=== PATIENT | female | born 1985 | race Caucasian/White ===

== ENCOUNTER 2016-12-24 10:17 | Emergency (ER) | payer OTHER ==
[~2016-12-24] VITALS: Ht 137.2 cm; Wt 56.7 kg
[~2016-12-24 10:17] MED LIST: ATARAX PO; DEPA250T3 OR; DEPA500T OR; NICO14DI3 TD; NICO7DIS4 TD; TRAZ100T OR; ZOLO50TA OR
[2016-12-24] MEDS ORDERED: CLAR10CA3 PO (10:28)
[2016-12-24] MEDS ORDERED: PRAZ1CAP PO (10:28)
[2016-12-24] MEDS ORDERED: MIRT45TA3 PO (10:28)
[2016-12-24] MEDS ORDERED: NS 1,000 ML IV ONE (11:00)
[2016-12-24] MEDS ORDERED: diphenhydrAMINE INJ 50MG/ML VIAL (J1200) IV ONE (11:00)
[2016-12-24] MEDS ORDERED: methylPREDNISolone INJ 125 MG/2 ML VIAL (J2930) IV ONE (11:00)
[2016-12-24] MEDS ORDERED: FAMOTIDINE 20 MG TAB PO ONE (11:00)
[2016-12-24 11:12] LABS: BASO % 0.1 % (0.0-1.0); EOS # 0.1 K/mm3 (0.0-0.50); EOS % 1.2 % (0.0-3.0); LARGE UNSTAINED CELL # 0.1 K/mm3 (0.0-0.4); LARGE UNSTAINED CELL % 0.6 % (0.0-4.0); LYMPH # 1.1 K/mm3 (1.5-4.5); LYMPH % 9.2 % (24.0-44.0); MEAN CORPUSCULAR HGB CONC 34.2 g/dl (32.0-36.5); MEAN CORPUSCULAR VOLUME 93.5 fl (80.0-96.0); MONO # 0.3 K/mm3 (0.0-0.8); MONO % 2.7 % (0.0-5.0); NEUTROPHILS # 9.4 K/mm3 (1.8-7.7); NEUTROPHILS % 86.3 % (36.0-66.0); PLATELET COUNT, AUTOMATED 199 k/mm3 (150-450); WHITE BLOOD COUNT 10.9 K/mm3 (4.0-10.0)
[2016-12-24 11:28] LABS: ANION GAP 6 MEQ/L (8-16); BLOOD UREA NITROGEN 12 MG/DL (7-18); CALCIUM LEVEL 8.7 MG/DL (8.5-10.1); CARBON DIOXIDE LEVEL 26 MEQ/L (21-32); CHLORIDE LEVEL 107 MEQ/L (98-107); CREATININE FOR GFR 0.55 MG/DL (0.55-1.02); GLOMERULAR FILTRATION RATE > 60.0 (>60); GLUCOSE, FASTING 101 MG/DL (70-105); POTASSIUM SERUM 4.2 MEQ/L (3.5-5.1); SODIUM LEVEL 139 MEQ/L (136-145)
[2016-12-24 11:31] LABS: ALBUMIN 3.7 GM/DL (3.2-5.2); ALBUMIN/GLOBULIN RATIO 1.12 (1.00-1.93); BILIRUBIN,DIRECT 0.1 MG/DL (0.0-0.2); BILIRUBIN,TOTAL 0.3 MG/DL (0.2-1.0)
[2016-12-24 11:57] LABS: ERYTHROCYTE SEDIMENTATION RATE 17 mm/hr (0-20)
[2016-12-24] MEDS ORDERED: BENA25CA4 PO (12:03)
[2016-12-24] MEDS ORDERED: PEPC1TAB4 PO (12:03)
[2016-12-24] MEDS ORDERED: PRED20TA PO (12:03)
[2016-12-24 12:06] VITALS: BP 113/78
== END 2016-12-24 12:09 | disposition home or self-care (01) ==
LOC: M ED 11:12
DX: L50.0 Allergic urticaria (principal); F99 Mental disorder, not otherwise specified; F17.200 Nicotine dependence, unspecified, uncomplicated; Z91.013 Allergy to seafood; Z79.899 Other long term (current) drug therapy
CPT/HCPCS: 80048; 80076; 81001; 85025; 85652; 86140; 96374; 96375; 99282; J1200; J2930

== ENCOUNTER 2017-02-10 04:08 | Inpatient (IN) | payer OTHER ==
[~2017-02-10] VITALS: Ht 154.9 cm; Wt 66.0 kg
[~2017-02-10 04:08] MED LIST changes: +BENA25CA4 PO; +CLAR10CA3 PO; +MIRT45TA3 PO; +PEPC1TAB4 PO; +PRAZ1CAP PO; +PRED20TA PO
[2017-02-10] MEDS ORDERED: CLON0.2T PO (04:24)
[2017-02-10] MEDS ORDERED: diphenhydrAMINE INJ 50MG/ML VIAL (J1200) IV ONE (05:30)
[2017-02-10] MEDS ORDERED: NS 1,000 ML IV ONE (05:30)
[2017-02-10] MEDS ORDERED: methylPREDNISolone INJ 125 MG/2 ML VIAL (J2930) IV ONE (05:30)
[2017-02-10] MEDS ORDERED: FAMOTIDINE IV BAG 20 MG in APPROPRIATE DILUENT 1 EA IV ONE (05:30)
[2017-02-10] MEDS ORDERED: DEPA1TAB3 PO (08:02)
[2017-02-10] MEDS ORDERED: MIRT45TA PO (08:02)
[2017-02-10] MEDS ORDERED: CLON-412 PO (08:02)
[2017-02-10] MEDS ORDERED: LORA10TA2 PO (08:02)
[2017-02-10] MEDS ORDERED: OMEP20TA PO (08:02)
[2017-02-10 08:24] LABS: ALBUMIN 3.1 GM/DL (3.2-5.2); ALBUMIN/GLOBULIN RATIO 1.03 (1.00-1.93); ALKALINE PHOSPHATASE 50 U/L (45-117); ALT/SGPT 16 U/L (12-78); ANION GAP 6 MEQ/L (8-16); AST/SGOT 10 U/L (15-37); BILIRUBIN,DIRECT < 0.1 MG/DL (0.0-0.2); BILIRUBIN,TOTAL 0.4 MG/DL (0.2-1.0); BLOOD UREA NITROGEN 12 MG/DL (7-18); CARBON DIOXIDE LEVEL 27 MEQ/L (21-32); CHLORIDE LEVEL 106 MEQ/L (98-107); CREATININE FOR GFR 0.49 MG/DL (0.55-1.02); GLOMERULAR FILTRATION RATE > 60.0 (>60); GLUCOSE, FASTING 98 MG/DL (70-105); SODIUM LEVEL 139 MEQ/L (136-145); TOTAL PROTEIN 6.1 GM/DL (6.4-8.2)
[2017-02-10 08:36] LABS: BASO % 0.1 % (0.0-1.0); EOS % 0.2 % (0.0-3.0); LARGE UNSTAINED CELL # 0.1 K/mm3 (0.0-0.4); LARGE UNSTAINED CELL % 0.8 % (0.0-4.0); LYMPH % 9.3 % (24.0-44.0); MEAN CORPUSCULAR HEMOGLOBIN 32.1 pg (27.0-33.0); MEAN CORPUSCULAR HGB CONC 34.8 g/dl (32.0-36.5); MONO # 0.4 K/mm3 (0.0-0.8); MONO % 3.3 % (0.0-5.0); NEUTROPHILS # 9.6 K/mm3 (1.8-7.7); NEUTROPHILS % 86.3 % (36.0-66.0); PLATELET COUNT, AUTOMATED 140 k/mm3 (150-450); RED CELL DISTRIBUTION WIDTH 11.9 % (11.5-14.5); WHITE BLOOD COUNT 11.2 K/mm3 (4.0-10.0)
[2017-02-10] MEDS ORDERED: ONDANSETRON 4MG/2ML VIAL (J2405) IV PRN (08:45)
[2017-02-10] MEDS ORDERED: ACETAMINOPHEN TAB 650MG DOSE (2X325MG) PO PRN (08:45)
[2017-02-10] MEDS ORDERED: ALBUTEROL SULFATE 2.5 MG/0.5 ML INH NEB SOLN INH PRN (08:45)
[2017-02-10] MEDS ORDERED: FAMOTIDINE IV BAG 20 MG in APPROPRIATE DILUENT 1 EA IV SCH (09:00)
[2017-02-10] MEDS: cloNIDine 0.1 MG TAB PO SCH ×2 (09:00→21:00)
[2017-02-10 09:36] LABS: RETIC HEMOGLOBIN CONTENT CHr 33.1 PG (24-36); RETICULOCYTE ABSOLUTE ADVIA212 106 x10(9)/L (17-77)
[2017-02-10 10:04] LABS: FERRITIN 32 NG/ML (8-252); TOTAL IRON BINDING CAPACITY 337 UG/DL (250-450)
[2017-02-10] MEDS: CETIRIZINE (ZyrTEC) 10 MG TAB PO SCH (10:36)
[2017-02-10] MEDS: DIVALPROEX 500 MG TAB PO SCH (10:36)
[2017-02-10] MEDS: ENOXAPARIN 40 MG/0.4 ML SYRINGE (J1650) SC SCH (10:38)
[2017-02-10 10:58] LABS: FOLATE 22.9 NG/ML; VITAMIN B12 LEVEL 422 PG/ML
[2017-02-10 11:06] LABS: ERYTHROCYTE SEDIMENTATION RATE 10 mm/hr (0-20)
[2017-02-10] MEDS: diphenhydrAMINE INJ 50MG/ML VIAL (J1200) IV PRN ×2 (11:44→18:58)
[2017-02-10] MEDS ORDERED: methylPREDNISolone INJ 40 MG/1 ML VIAL (J2920) IV SCH (12:00)
[2017-02-10] MEDS: FAMOTIDINE IV BAG 20 MG in APPROPRIATE DILUENT 1 EA IV SCH (18:00)
[2017-02-10] MEDS: methylPREDNISolone INJ 125 MG/2 ML VIAL (J2930) IV SCH (21:00)
[2017-02-10] MEDS ORDERED: MIRTAZAPINE 15 MG TAB PO SCH (21:00)
[2017-02-10 22:00] VITALS: BP 120/63
[2017-02-11] MEDS: methylPREDNISolone INJ 125 MG/2 ML VIAL (J2930) IV SCH ×2 (03:32→11:38)
[2017-02-11] MEDS: diphenhydrAMINE INJ 50MG/ML VIAL (J1200) IV PRN ×2 (03:32→08:58)
[2017-02-11 06:00] VITALS: BP 139/66
[2017-02-11] MEDS: FAMOTIDINE IV BAG 20 MG in APPROPRIATE DILUENT 1 EA IV SCH (06:24)
[2017-02-11 06:56] LABS: MEAN CORPUSCULAR HEMOGLOBIN 32.5 pg (27.0-33.0); MEAN CORPUSCULAR HGB CONC 35.1 g/dl (32.0-36.5); MEAN CORPUSCULAR VOLUME 92.8 fl (80.0-96.0); RED CELL DISTRIBUTION WIDTH 11.8 % (11.5-14.5); WHITE BLOOD COUNT 16.1 K/mm3 (4.0-10.0)
[2017-02-11 07:06] LABS: ANION GAP 7 MEQ/L (8-16); BLOOD UREA NITROGEN 12 MG/DL (7-18); CALCIUM LEVEL 8.5 MG/DL (8.5-10.1); CARBON DIOXIDE LEVEL 27 MEQ/L (21-32); CHLORIDE LEVEL 108 MEQ/L (98-107); CREATININE FOR GFR 0.55 MG/DL (0.55-1.02); GLOMERULAR FILTRATION RATE > 60.0 (>60); GLUCOSE, FASTING 148 MG/DL (70-105); POTASSIUM SERUM 4.2 MEQ/L (3.5-5.1); SODIUM LEVEL 142 MEQ/L (136-145)
[2017-02-11 09:01] VITALS: BP 139/66
[2017-02-11] MEDS: DIVALPROEX 500 MG TAB PO SCH (09:01)
[2017-02-11] MEDS: cloNIDine 0.1 MG TAB PO SCH (09:01)
[2017-02-11] MEDS: CETIRIZINE (ZyrTEC) 10 MG TAB PO SCH (09:02)
[2017-02-11] MEDS: ENOXAPARIN 40 MG/0.4 ML SYRINGE (J1650) SC SCH (09:02)
[2017-02-11] MEDS ORDERED: DIPH25CA PO ×2 (09:18→11:47)
[2017-02-11] MEDS ORDERED: PRED10TA PO (09:18)
[2017-02-11] MEDS ORDERED: CETI10TA PO (09:18)
[2017-02-11 09:56] LABS: COMPLEMENT C3 110 MG/DL (90-180); COMPLEMENT C4 20.4 MG/DL (10-40)
[2017-02-12] MEDS ORDERED: BENA25TA9 PO (14:12)
[2017-02-12] MEDS ORDERED: CETI10TA PO (14:12)
[2017-02-12] MEDS ORDERED: PRED10TA PO (14:14)
== END 2017-02-11 12:35 | DRG 346 ==
LOC: M ED 04:47 → M ED INP 08:45 → M MS5PR 17:55
PROVIDERS: ADMIT Internal Medicine; ATTEND Internal Medicine
DX: M35.9 Systemic involvement of connective tissue, unspecified (principal); F41.9 Anxiety disorder, unspecified; F31.9 Bipolar disorder, unspecified; J30.2 Other seasonal allergic rhinitis; F90.9 Attention-deficit hyperactivity disorder, unspecified type; L23.9 Allergic contact dermatitis, unspecified cause; Z79.899 Other long term (current) drug therapy; Z87.891 Personal history of nicotine dependence

== ENCOUNTER 2017-02-12 12:33 | Emergency (ER) | payer OTHER ==
[~2017-02-12] VITALS: Ht 154.9 cm; Wt 69.4 kg
[~2017-02-12 12:33] MED LIST changes: +CETI10TA PO; +CLON-412 PO; +CLON0.2T PO; +DEPA1TAB3 PO; +DIPH25CA PO; +LORA10TA2 PO; +MIRT45TA PO; +OMEP20TA PO; +PRED10TA2 PO
[2017-02-12] MEDS ORDERED: FAMOTIDINE INJ 20MG/2ML VIAL (S0028) IVP ONE (13:30)
[2017-02-12] MEDS ORDERED: methylPREDNISolone INJ 125 MG/2 ML VIAL (J2930) IV ONE (13:30)
[2017-02-12 13:56] LABS: BASO % 0.1 % (0.0-1.0); EOS # 0.1 K/mm3 (0.0-0.50); EOS % 0.5 % (0.0-3.0); LARGE UNSTAINED CELL # 0.1 K/mm3 (0.0-0.4); LARGE UNSTAINED CELL % 0.6 % (0.0-4.0); LYMPH # 1.4 K/mm3 (1.5-4.5); LYMPH % 9.7 % (24.0-44.0); MEAN CORPUSCULAR HEMOGLOBIN 31.8 pg (27.0-33.0); MEAN CORPUSCULAR HGB CONC 34.6 g/dl (32.0-36.5); MEAN CORPUSCULAR VOLUME 91.9 fl (80.0-96.0); MONO # 0.6 K/mm3 (0.0-0.8); MONO % 4.6 % (0.0-5.0); NEUTROPHILS # 11.4 K/mm3 (1.8-7.7); NEUTROPHILS % 84.6 % (36.0-66.0); PLATELET COUNT, AUTOMATED 180 k/mm3 (150-450); RED CELL DISTRIBUTION WIDTH 12.4 % (11.5-14.5); WHITE BLOOD COUNT 13.5 K/mm3 (4.0-10.0)
[2017-02-12 14:11] LABS: CONTROL LINE HCG INT CTR LINE PRESENT
[2017-02-12] MEDS ORDERED: CETI10TA PO (14:12)
[2017-02-12] MEDS ORDERED: BENA25TA10 PO (14:12)
[2017-02-12] MEDS ORDERED: PRED10TA2 PO (14:14)
[2017-02-12 14:19] LABS: ALBUMIN 2.9 GM/DL (3.2-5.2); ALBUMIN/GLOBULIN RATIO 0.91 (1.00-1.93); ALKALINE PHOSPHATASE 44 U/L (45-117); ALT/SGPT 14 U/L (12-78); ANION GAP 7 MEQ/L (8-16); AST/SGOT 3 U/L (15-37); BILIRUBIN,DIRECT < 0.1 MG/DL (0.0-0.2); BILIRUBIN,TOTAL 0.1 MG/DL (0.2-1.0); BLOOD UREA NITROGEN 14 MG/DL (7-18); CALCIUM LEVEL 8.3 MG/DL (8.5-10.1); CARBON DIOXIDE LEVEL 27 MEQ/L (21-32); CHLORIDE LEVEL 108 MEQ/L (98-107); CREATININE FOR GFR 0.54 MG/DL (0.55-1.02); GLOMERULAR FILTRATION RATE > 60.0 (>60); GLUCOSE, FASTING 104 MG/DL (70-105); POTASSIUM SERUM 4.2 MEQ/L (3.5-5.1); SODIUM LEVEL 142 MEQ/L (136-145); TOTAL PROTEIN 6.1 GM/DL (6.4-8.2)
--- NOTE | 2017-02-12 15:37 | REP ---
CHEST, TWO VIEWS: There is no evidence of acute infiltrate. No pleural effusion is seen. The heart is normal in size. The mediastinal silhouette is unremarkable. The visualized osseous structures are intact. IMPRESSION: No acute pulmonary disease. Signed by Elvis Ledezma MD 02/12/2017 05:15 P
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
[2017-02-12 18:35] VITALS: BP 140/92
== END 2017-02-12 18:37 | disposition left against medical advice (07) ==
LOC: M ED 14:38
DX: L50.0 Allergic urticaria (principal); T78.40XA Allergy, unspecified, initial encounter; X58.XXXD Exposure to other specified factors, subsequent encounter; Y92.89 Other specified places as the place of occurrence of the external cause; Y93.9 Activity, unspecified; Y99.8 Other external cause status
CPT/HCPCS: 71020; 80048; 80076; 80164; 84703; 85025; 93041; 94760; 96374; 96375; 99285; J2930

== ENCOUNTER → 2017-03-24 | Outpatient (REF) | payer OTHER ==
[~2017-03-24] MED LIST changes: +BENA25TA10 PO
[2017-03-24 18:44] LABS: MEAN CORPUSCULAR HGB CONC 34.2 g/dl (32.0-36.5); MEAN CORPUSCULAR VOLUME 96.7 fl (80.0-96.0); RED CELL DISTRIBUTION WIDTH 12.5 % (11.5-14.5); WHITE BLOOD COUNT 7.7 K/mm3 (4.0-10.0)
[2017-03-24 18:55] LABS: ALBUMIN 3.2 GM/DL (3.2-5.2); ALBUMIN/GLOBULIN RATIO 1.03 (1.00-1.93); ALKALINE PHOSPHATASE 51 U/L (45-117); ALT/SGPT 17 U/L (12-78); ANION GAP 8 MEQ/L (8-16); AST/SGOT 10 U/L (15-37); BILIRUBIN,TOTAL 0.3 MG/DL (0.2-1.0); BLOOD UREA NITROGEN 12 MG/DL (7-18); CALCIUM LEVEL 8.5 MG/DL (8.5-10.1); CARBON DIOXIDE LEVEL 22 MEQ/L (21-32); CHLORIDE LEVEL 111 MEQ/L (98-107); CHOLESTEROL LEVEL 162 MG/DL (<200); GLOMERULAR FILTRATION RATE > 60.0 (>60); GLUCOSE, FASTING 117 MG/DL (70-105); POTASSIUM SERUM 3.9 MEQ/L (3.5-5.1); SODIUM LEVEL 141 MEQ/L (136-145); TOTAL PROTEIN 6.3 GM/DL (6.4-8.2); TRIGLYCERIDES LEVEL 158 MG/DL (<150)
== END ==
LOC: M LAB REF 16:31
PROVIDERS: ATTEND Nurse Practitioner Family
DX: L50.0 Allergic urticaria (principal); Z13.220 Encounter for screening for lipoid disorders; Z11.3 Encounter for screening for infections with a predominantly sexual mode of transmission

== ENCOUNTER → 2017-07-07 | Outpatient (REF) | payer OTHER ==
[~2017-07-07] MED LIST changes: +ADDE12.5 PO; +CYCL10TA PO; +IBUP-1022 PO; +TRAM-533 PO
[2017-07-07 19:04] LABS: FOLATE 11.4 NG/ML
== END ==
LOC: M LAB REF 17:45
PROVIDERS: ATTEND Nurse Practitioner Adult Health
DX: G60.9 Hereditary and idiopathic neuropathy, unspecified (principal)

== ENCOUNTER → 2017-08-25 | Outpatient (REF) | payer OTHER ==
[2017-08-25 14:07] LABS: RHEUMATOID FACTOR QUANT < 10.0 IU/ML (0-15.0)
[2017-08-25 14:11] LABS: VITAMIN B12 LEVEL 574 PG/ML
[2017-08-25 16:00] LABS: ERYTHROCYTE SEDIMENTATION RATE 4 mm/hr (0-20)
[2017-08-26 14:21] LABS: ANTINUCLEAR ANTIBODIES DIRECT Negative (Negative)
[2017-08-29 00:06] LABS: VITAMIN B1 LEVEL WHOLE BLOOD 141.9 nmol/L (66.5-200.0); VITAMIN B6,PYRIDOXAL PHOSPHATE 13.7 ug/L (2.0-32.8)
[2017-09-01 14:12] LABS: VITAMIN E LEVEL 6.8 mg/L (5.3-16.8)
== END ==
LOC: M LABNEURO 09:00
DX: R20.9 Unspecified disturbances of skin sensation (principal); M25.50 Pain in unspecified joint
CPT/HCPCS: 82746

== ENCOUNTER 2018-01-01 03:07 | Emergency (ER) | payer OTHER ==
[2018-01-01 03:24] LABS: HEMATOCRIT 39.6 % (36.0-47.0); HEMOGLOBIN 13.6 g/dl (12.0-15.5); MEAN CORPUSCULAR HGB CONC 34.3 g/dl (32.0-36.5); MEAN CORPUSCULAR VOLUME 93.2 fl (80.0-96.0); PLATELET COUNT, AUTOMATED 274 10^3/uL (150-450); RED BLOOD COUNT 4.25 10^6/uL (4.00-5.40); RED CELL DISTRIBUTION WIDTH 12.8 % (11.5-14.5); WHITE BLOOD COUNT 12.2 10^3/uL (4.0-10.0)
[2018-01-01 03:39] LABS: CONTROL LINE HCG INT CTR LINE PRESENT; HCG, SERUM QUALITATIVE NEGATIVE (NEGATIVE)
[2018-01-01 03:44] LABS: AMPHETAMINES LEVEL URINE POSITIVE (NEGATIVE); BARBITURATES URINE NEGATIVE (NEGATIVE); BENZODIAZEPINES URINE NEGATIVE (NEGATIVE); CANNABINOIDS URINE NEGATIVE (NEGATIVE); COCAINE METABOLITE URINE POSITIVE (NEGATIVE); METHADONE URINE NEGATIVE (NEGATIVE); OPIATES URINE NEGATIVE (NEGATIVE); PHENCYCLIDINE URINE NEGATIVE (NEGATIVE)
[2018-01-01 03:55] LABS: ACETAMINOPHEN LEVEL < 2.0 UG/ML (10.0-30.0); ALBUMIN/GLOBULIN RATIO 1.18 (1.00-1.93); ALKALINE PHOSPHATASE 72 U/L (45-117); ALT/SGPT 16 U/L (12-78); ANION GAP 6 MEQ/L (8-16); AST/SGOT 9 U/L (7-37); BILIRUBIN,DIRECT < 0.1 MG/DL (0.0-0.2); BILIRUBIN,TOTAL 0.2 MG/DL (0.2-1.0); BLOOD UREA NITROGEN 14 MG/DL (7-18); CALCIUM LEVEL 8.5 MG/DL (8.5-10.1); CARBON DIOXIDE LEVEL 28 MEQ/L (21-32); CHLORIDE LEVEL 111 MEQ/L (98-107); CREATININE FOR GFR 0.65 MG/DL (0.55-1.30); ETHYL ALCOHOL (ETHANOL) 0.024 % (0.000-0.010); GLOMERULAR FILTRATION RATE > 60.0 (>60); GLUCOSE, FASTING 87 MG/DL (70-100); POTASSIUM SERUM 3.7 MEQ/L (3.5-5.1); SALICYLATE LEVEL 3.1 MG/DL (5.0-30.0); SODIUM LEVEL 145 MEQ/L (136-145); TOTAL PROTEIN 7.4 GM/DL (6.4-8.2)
[2018-01-01 04:26] LABS: VALPROIC ACID (DEPAKOTE) 4.8 UG/ML (50.0-100.0)
== END 2018-01-01 06:05 | disposition home or self-care (01) ==
LOC: M ED 03:07
DX: R46.4 Slowness and poor responsiveness (principal); F14.10 Cocaine abuse, uncomplicated; F10.10 Alcohol abuse, uncomplicated; F41.9 Anxiety disorder, unspecified; F17.200 Nicotine dependence, unspecified, uncomplicated; Z79.899 Other long term (current) drug therapy; Z91.013 Allergy to seafood
CPT/HCPCS: 93005

== ENCOUNTER 2018-03-09 16:31 | Emergency (ER) | payer OTHER ==
[2018-03-09] MEDS: KETOROLAC TROMETHAMINE 10 MG TAB PO (17:06)
== END 2018-03-09 17:50 | disposition home or self-care (01) ==
LOC: M ED 16:31
DX: S50.01XA Contusion of right elbow, initial encounter (principal); W01.198A Fall on same level from slipping, tripping and stumbling with subsequent striking against other object, initial encounter; Y92.008 Other place in unspecified non-institutional (private) residence as the place of occurrence of the external cause; F33.9 Major depressive disorder, recurrent, unspecified; F41.9 Anxiety disorder, unspecified; F90.9 Attention-deficit hyperactivity disorder, unspecified type; Z79.899 Other long term (current) drug therapy; F17.210 Nicotine dependence, cigarettes, uncomplicated
CPT/HCPCS: 73080

== ENCOUNTER 2018-04-19 02:23 | Inpatient (IN) | payer MEDICAID, OTHER ==
[2018-04-19 02:45] LABS: ABG BASE EXCESS -4.5 (-2.0-2.0); ABG HCO3 19.5 MEQ/L (22.0-26.0); ABG PARTIAL PRESSURE CO2 32.8 mmHg (35.0-45.0); ABG PARTIAL PRESSURE O2 102.2 mmHg (75.0-100.0); ABG STANDARD HCO3 20.8 MEQ/L (22.0-26.0); ABG TOTAL CO2 20.5 MEQ/L (22.0-29.0); ABG pH (ARTERIAL) 7.392 UNITS (7.350-7.450)
[2018-04-19 02:46] LABS: BASO # 0.1 10^3/uL (0.0-0.2); BASO % 0.8 % (0.0-1.0); EOS # 0.5 10^3/uL (0.0-0.50); EOS % 5.3 % (0.0-3.0); HEMATOCRIT 37.8 % (36.0-47.0); HEMOGLOBIN 13.1 g/dl (12.0-15.5); IMMATURE GRANULOCYTE % 0.2 % (0-3.0); LYMPH # 3.6 10^3/uL (1.5-4.5); LYMPH % 41.4 % (24.0-44.0); MEAN CORPUSCULAR HEMOGLOBIN 32.3 pg (27.0-33.0); MEAN CORPUSCULAR HGB CONC 34.7 g/dl (32.0-36.5); MEAN CORPUSCULAR VOLUME 93.1 fl (80.0-96.0); MONO # 0.4 10^3/uL (0.0-0.8); MONO % 4.9 % (0.0-5.0); NEUTROPHILS # 4.1 10^3/uL (1.8-7.7); NEUTROPHILS % 47.4 % (36.0-66.0); PLATELET COUNT, AUTOMATED 249 10^3/uL (150-450); RED BLOOD COUNT 4.06 10^6/uL (4.00-5.40); RED CELL DISTRIBUTION WIDTH 12.4 % (11.5-14.5); WHITE BLOOD COUNT 8.7 10^3/uL (4.0-10.0)
[2018-04-19 03:05] LABS: CONTROL LINE HCG INT CTR LINE PRESENT; HCG, SERUM QUALITATIVE NEGATIVE (NEGATIVE)
[2018-04-19 03:21] LABS: ALBUMIN 3.6 GM/DL (3.2-5.2); ALBUMIN/GLOBULIN RATIO 1.09 (1.00-1.93); ALKALINE PHOSPHATASE 51 U/L (45-117); ALT/SGPT 17 U/L (12-78); ANION GAP 9 MEQ/L (8-16); AST/SGOT 13 U/L (7-37); BILIRUBIN,DIRECT < 0.1 MG/DL (0.0-0.2); BILIRUBIN,TOTAL 0.2 MG/DL (0.2-1.0); BLOOD UREA NITROGEN 9 MG/DL (7-18); CALCIUM LEVEL 7.9 MG/DL (8.5-10.1); CARBON DIOXIDE LEVEL 24 MEQ/L (21-32); CHLORIDE LEVEL 114 MEQ/L (98-107); CPK CREATINE PHOSPHOKINASE 114 U/L (26-192); CREATININE FOR GFR 0.68 MG/DL (0.55-1.30); ETHYL ALCOHOL (ETHANOL) 0.154 % (0.000-0.010); GLOMERULAR FILTRATION RATE > 60.0 (>60); GLUCOSE, FASTING 83 MG/DL (70-100); POTASSIUM SERUM 3.6 MEQ/L (3.5-5.1); SALICYLATE LEVEL 2.4 MG/DL (5.0-30.0); SODIUM LEVEL 147 MEQ/L (136-145); THYROID STIMULATING HORMONE 0.857 uIU/ML (0.358-3.740); TOTAL PROTEIN 6.9 GM/DL (6.4-8.2)
[2018-04-19 03:26] LABS: ACETAMINOPHEN LEVEL < 2.0 UG/ML (10.0-30.0)
[2018-04-19] MEDS ORDERED: NS 1,000 ML IV (05:30)
[2018-04-19 06:05] LABS: AMPHETAMINES LEVEL URINE NEGATIVE (NEGATIVE); BARBITURATES URINE NEGATIVE (NEGATIVE); BENZODIAZEPINES URINE NEGATIVE (NEGATIVE); CANNABINOIDS URINE POSITIVE (NEGATIVE); COCAINE METABOLITE URINE POSITIVE (NEGATIVE); METHADONE URINE NEGATIVE (NEGATIVE); OPIATES URINE NEGATIVE (NEGATIVE); PHENCYCLIDINE URINE NEGATIVE (NEGATIVE)
[2018-04-19] MEDS: TETRACAINE 0.5% OPHTH SOLN 4ML OU (06:09)
[2018-04-19] MEDS: IBUPROFEN 800 MG TAB PO (13:00)
[2018-04-19] MEDS ORDERED: traZODone 50 MG TAB PO (16:00)
[2018-04-19] MEDS ORDERED: MAALOX 30 ML SUSP *UDC PO (16:00)
[2018-04-19] MEDS ORDERED: hydrOXYzine 50 MG TAB PO (16:00)
[2018-04-19] MEDS ORDERED: MOM 30ML SUSPENSION UDC PO (16:00)
[2018-04-19] MEDS ORDERED: traZODone 100 MG TAB PO (18:00)
[2018-04-19 19:01] LABS: VALPROIC ACID (DEPAKOTE) < 3.0 UG/ML (50.0-100.0)
[2018-04-20] MEDS: DIVALPROEX 500MG *ER* TAB PO (08:12)
[2018-04-20] MEDS: AUGMENTIN 875 MG TAB PO ×2 (10:02→21:24)
[2018-04-20] MEDS: CHLORHEXIDINE ORAL RINSE 0.12%/15ML 120ML BOTTLE SSP ×3 (10:45→21:24)
[2018-04-20] MEDS: ERYTHROMYCIN OPHTH OINT OS ×3 (10:45→21:25)
[2018-04-20] MEDS: ACETAMINOPHEN TAB 650MG DOSE (2X325MG) PO ×2 (12:31→19:37)
[2018-04-20] MEDS: NICOTINE 21MG/24HR 1 EA TRANSDERMAL TD (14:00)
[2018-04-20] MEDS: QUEtiapine FUMARATE 100 MG TAB PO (21:24)
[2018-04-21 07:24] LABS: ANION GAP 7 MEQ/L (8-16); BLOOD UREA NITROGEN 14 MG/DL (7-18); CALCIUM LEVEL 8.7 MG/DL (8.5-10.1); CARBON DIOXIDE LEVEL 27 MEQ/L (21-32); CHLORIDE LEVEL 108 MEQ/L (98-107); CREATININE FOR GFR 0.68 MG/DL (0.55-1.30); GLOMERULAR FILTRATION RATE > 60.0 (>60); GLUCOSE, FASTING 76 MG/DL (70-100); POTASSIUM SERUM 3.9 MEQ/L (3.5-5.1); SODIUM LEVEL 142 MEQ/L (136-145); VALPROIC ACID (DEPAKOTE) 54.5 UG/ML (50.0-100.0)
[2018-04-21] MEDS: DIVALPROEX 500MG *ER* TAB PO (08:22)
[2018-04-21] MEDS: ACETAMINOPHEN TAB 650MG DOSE (2X325MG) PO (08:22)
[2018-04-21] MEDS: AUGMENTIN 875 MG TAB PO (08:22)
[2018-04-21] MEDS: NICOTINE 21MG/24HR 1 EA TRANSDERMAL TD (08:23)
[2018-04-21] MEDS: CHLORHEXIDINE ORAL RINSE 0.12%/15ML 120ML BOTTLE SSP (08:24)
[2018-04-21] MEDS: ERYTHROMYCIN OPHTH OINT OS (08:25)
== END 2018-04-21 14:15 | disposition home or self-care (01) | DRG 885 ==
LOC: M ED 02:23 → M ED INP 15:46 → M PSY 16:25
DX: F31.60 Bipolar disorder, current episode mixed, unspecified (principal); R45.851 Suicidal ideations; E87.0 Hyperosmolality and hypernatremia; F10.10 Alcohol abuse, uncomplicated; F14.90 Cocaine use, unspecified, uncomplicated; F12.90 Cannabis use, unspecified, uncomplicated; F17.200 Nicotine dependence, unspecified, uncomplicated; H10.32 Unspecified acute conjunctivitis, left eye; K04.7 Periapical abscess without sinus

== ENCOUNTER 2018-08-20 04:17 | Emergency (ER) | payer MEDICAID, OTHER ==
[~2018-08-20] VITALS: Ht 139.7 cm; Wt 54.5 kg
[2018-08-20 04:17] VITALS: BP 132/85
[~2018-08-20 04:17] MED LIST changes: +AMPH30CA PO; +DEPA500T2 PO; +DICL75TA PO; +DIVA500T94 PO; +LORA-243 PO; -LORA10TA2 PO; -MIRT45TA PO; -MIRT45TA3 PO; +MIRT45TA4 PO; +MIRT45TA59 PO; -PEPC1TAB4 PO; +PEPC1TAB5 PO; +QUET1TAB8 PO; +TRAZ-163 PO
[2018-08-20] MEDS ORDERED: Adderall (04:26)
[2018-08-20] MEDS ORDERED: DIVA500T94 (04:26)
[2018-08-20] MEDS ORDERED: MAGICMW MT (06:13)
[2018-08-20] MEDS ORDERED: KEFL500C17 PO (06:32)
[2018-08-20] MEDS ORDERED: ACET30TAB PO (06:32)
[2018-08-20] MEDS ORDERED: ACETAMINOPH W/CODEINE #3 TAB UD PO ONE (06:45)
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
== END 2018-08-20 06:56 | disposition home or self-care (01) ==
LOC: M ED 04:17
DX: J02.0 Streptococcal pharyngitis (principal); S62.627A Displaced fracture of middle phalanx of left little finger, initial encounter for closed fracture; Y04.0XXA Assault by unarmed brawl or fight, initial encounter; Y92.89 Other specified places as the place of occurrence of the external cause; J45.909 Unspecified asthma, uncomplicated; F33.9 Major depressive disorder, recurrent, unspecified; F41.9 Anxiety disorder, unspecified; F90.9 Attention-deficit hyperactivity disorder, unspecified type; Z79.899 Other long term (current) drug therapy; Z91.013 Allergy to seafood; Z91.030 Bee allergy status; Z88.8 Allergy status to other drugs, medicaments and biological substances; F17.210 Nicotine dependence, cigarettes, uncomplicated

== ENCOUNTER 2019-01-14 21:51 | Emergency (ER) | payer OTHER ==
[~2019-01-14] VITALS: Ht 139.7 cm; Wt 47.7 kg
[~2019-01-14 21:51] MED LIST changes: +ACET-716 PO; +Adderall; +KEFL500C17 PO; +MAGICMW MT; +MIRT1TAB17 PO; -MIRT45TA59 PO
[2019-01-14] MEDS ORDERED: ADDE30TA PO (22:09)
[2019-01-14] MEDS ORDERED: NICO21DI38 TOP (22:09)
[2019-01-14 22:24] LABS: HEMATOCRIT 38.7 % (36.0-47.0); HEMOGLOBIN 12.9 g/dl (12.0-15.5); MEAN CORPUSCULAR HEMOGLOBIN 31.7 pg (27.0-33.0); MEAN CORPUSCULAR HGB CONC 33.3 g/dl (32.0-36.5); MEAN CORPUSCULAR VOLUME 95.1 fl (80.0-96.0); PLATELET COUNT, AUTOMATED 206 10^3/uL (150-450); RED BLOOD COUNT 4.07 10^6/uL (4.00-5.40); WHITE BLOOD COUNT 8.6 10^3/uL (4.0-10.0)
[2019-01-14 22:51] LABS: HCG, SERUM QUALITATIVE NEGATIVE (NEGATIVE)
[2019-01-14 22:53] LABS: AMPHETAMINES LEVEL URINE NEGATIVE (NEGATIVE); BARBITURATES URINE NEGATIVE (NEGATIVE); BENZODIAZEPINES URINE NEGATIVE (NEGATIVE); CANNABINOIDS URINE NEGATIVE (NEGATIVE); COCAINE METABOLITE URINE POSITIVE (NEGATIVE); METHADONE URINE NEGATIVE (NEGATIVE); OPIATES URINE NEGATIVE (NEGATIVE); PHENCYCLIDINE URINE NEGATIVE (NEGATIVE)
[2019-01-14 22:59] LABS: ACETAMINOPHEN LEVEL < 2.0 UG/ML (10.0-30.0); ALBUMIN 3.3 GM/DL (3.2-5.2); ALT/SGPT 12 U/L (12-78); BILIRUBIN,DIRECT < 0.1 MG/DL (0.0-0.2); BILIRUBIN,TOTAL 0.2 MG/DL (0.2-1.0); BLOOD UREA NITROGEN 14 MG/DL (7-18); CALCIUM LEVEL 8.2 MG/DL (8.5-10.1); CARBON DIOXIDE LEVEL 28 MEQ/L (21-32); CHLORIDE LEVEL 112 MEQ/L (98-107); ETHYL ALCOHOL (ETHANOL) < 0.003 % (0.000-0.010); GLOMERULAR FILTRATION RATE > 60.0 (>60); GLUCOSE, FASTING 88 MG/DL (70-100); POTASSIUM SERUM 4.3 MEQ/L (3.5-5.1); SALICYLATE LEVEL 2.1 MG/DL (5.0-30.0); SODIUM LEVEL 144 MEQ/L (136-145); THYROID STIMULATING HORMONE 0.758 uIU/ML (0.358-3.740); TOTAL PROTEIN 6.3 GM/DL (6.4-8.2)
[2019-01-15 00:50] VITALS: BP 125/86
== END 2019-01-15 00:54 | disposition home or self-care (01) ==
LOC: M ED 21:51
DX: F14.10 Cocaine abuse, uncomplicated (principal); F43.20 Adjustment disorder, unspecified; F90.9 Attention-deficit hyperactivity disorder, unspecified type; F41.9 Anxiety disorder, unspecified; G47.30 Sleep apnea, unspecified; Z79.899 Other long term (current) drug therapy; Z91.013 Allergy to seafood; Z91.018 Allergy to other foods; Z91.030 Bee allergy status; Z88.8 Allergy status to other drugs, medicaments and biological substances; F17.210 Nicotine dependence, cigarettes, uncomplicated
CPT/HCPCS: 36415; 80048; 80076; 80307; 84443; 84703; 85027; 99284; G0480

== ENCOUNTER 2019-07-03 15:41 | Inpatient (IN) | payer OTHER ==
[~2019-07-03] VITALS: Ht 139.7 cm; Wt 46.8 kg
[~2019-07-03 15:41] MED LIST changes: +ADDE30TA PO; +AMPH1CAP5 PO; -AMPH30CA PO; -DIPH25CA PO; +DIPH25CA32 PO; +NICO21DI38 TOP; +OMEP-358 PO; -OMEP20TA PO
--- NOTE | 2019-07-03 16:50 | ECGEPIP ---
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
--- NOTE | 2019-07-03 16:51 | REP ---
PA and lateral chest: Comparison is 02/12/2017. The lung box are clear. The cardiac size is normal. The douglas, mediastinum, and skeletal structures are unremarkable. Impression: Negative PA and lateral chest. There is no interval change. Electronically Signed by Elvis Rivera MD 07/03/2019 04:43 P
[2019-07-03 16:59] LABS: HEMATOCRIT 40.7 % (36.0-47.0); HEMOGLOBIN 13.4 g/dl (12.0-15.5); MEAN CORPUSCULAR HEMOGLOBIN 30.7 pg (27.0-33.0); MEAN CORPUSCULAR HGB CONC 32.9 g/dl (32.0-36.5); MEAN CORPUSCULAR VOLUME 93.3 fl (80.0-96.0); PLATELET COUNT, AUTOMATED 159 10^3/uL (150-450); RED BLOOD COUNT 4.36 10^6/uL (4.00-5.40); WHITE BLOOD COUNT 3.7 10^3/uL (4.0-10.0)
[2019-07-03] MEDS ORDERED: METAL LOCK LOOP XX ONE (17:20)
[2019-07-03 17:34] LABS: ATYPICAL LYMPH 8 % (0-5); BASOPHILS 1 % (0-1); EOSINOPHILS 6 % (0-3); LYMPHOCYTES 28 % (16-44); MONOCYTES 10 % (0-5); NEUTROPHILS 47 % (28-66); PLATELET ESTIMATE NORMAL (NORMAL)
[2019-07-03 17:36] LABS: ALBUMIN 2.9 GM/DL (3.2-5.2); ALT/SGPT 1783 U/L (12-78); BILIRUBIN,DIRECT 3.4 MG/DL (0.0-0.2); BILIRUBIN,TOTAL 4.3 MG/DL (0.2-1.0); BLOOD UREA NITROGEN 7 MG/DL (7-18); CALCIUM LEVEL 8.5 MG/DL (8.5-10.1); CARBON DIOXIDE LEVEL 31 MEQ/L (21-32); CHLORIDE LEVEL 107 MEQ/L (98-107); CK-MB VALUE MASS < 1.0 NG/ML (<3.6); CPK CREATINE PHOSPHOKINASE 28 U/L (26-192); CREATININE FOR GFR 0.65 MG/DL (0.55-1.30); GLOMERULAR FILTRATION RATE > 60.0 (>60); GLUCOSE, FASTING 108 MG/DL (70-100); LIPASE 83 U/L (73-393); MB/CK RELATIVE INDEX 3.57 (< OR =4); POTASSIUM SERUM 3.4 MEQ/L (3.5-5.1); SODIUM LEVEL 143 MEQ/L (136-145); TOTAL PROTEIN 6.8 GM/DL (6.4-8.2); TROPONIN I < 0.02 NG/ML (< 0.10)
[2019-07-03] MEDS ORDERED: ISOVUE-370 76% 100ML VIAL (Q9967) As Ordered ONE (17:38)
[2019-07-03] MEDS ORDERED: KETOROLAC 30 MG/ML VIAL (J1885) IV ONE (17:45)
[2019-07-03 18:07] LABS: MONO REFLEX EBV COMP NEGATIVE (NEGATIVE)
--- NOTE | 2019-07-03 18:33 | REPVR ---
PROCEDURE INFORMATION: Exam: CT Abdomen And Pelvis With Contrast Exam date and time: 07/03/2019 5:46 PM Clinical history: 33 years old, female; Abdominal pain; Flank; Right; Additional info: R flank pain, epigastric pain S/P fall TECHNIQUE: Imaging protocol: Computed tomography of the abdomen and pelvis with intravenous contrast. Radiation optimization: All CT scans at this facility use at least one of these dose optimization techniques: automated exposure control; mA and/or kV adjustment per patient size (includes targeted exams where dose is matched to clinical indication); or iterative reconstruction. Contrast material: ISOVUE 370; Contrast volume: 100 ml; Contrast route: IV; COMPARISON: No relevant prior studies available. FINDINGS: Liver: The liver and spleen are intact. No perihepatic or perisplenic fluid collections are identified. Nonspecific low attenuation area in the right hepatic lobe measuring 8 x 12 x 11 mm. The liver attenuation is 109 Hounsfield units and the spleen is 163 Hounsfield units. Gallbladder and bile ducts: Contracted gallbladder with mucosal enhancement and prominent pericholecystic fluid or wall edema. Pancreas: Normal. No ductal dilation. Spleen: Normal. No splenomegaly. Adrenals: Normal. No mass. Kidneys and ureters: Normal. No hydronephrosis. Stomach and bowel: Wall thickening of the ascending and transverse colon. Appendix: A normal retrocecal appendix is seen. Intraperitoneal space: Mild free fluid in the pelvis with Hounsfield measurement of 8 which is upper normal for physiologic origin. Vasculature: Unremarkable. No abdominal aortic aneurysm. Lymph nodes: Unremarkable. No enlarged lymph nodes. Bladder: Unremarkable as visualized. Reproductive: Status post tubal ligation. Follicular changes in the ovaries bilaterally measuring up to 16 mm on the left. Bones/joints: Posterior central protrusion L5-S1 measuring approximately 7 mm. Soft tissues: Unremarkable. IMPRESSION: 1. Contracted gallbladder with mucosal enhancement and no definite stones. There is prominent pericholecystic fluid or wall edema. 2. Posterior central protrusion at L5-S1 measuring approximately 7 mm. 3. Nonspecific low attenuation focus in the liver measuring approximately 8 x 12 x 11 mm. 4. Fatty infiltration of the liver. 5. Question of minimal nonspecific colitis of the right colon involving the ascending and transverse colon. 6. Otherwise negative CT abdomen/pelvis. No renal or ureteral calculi are evident and there is no evidence of obstructive uropathy. Electronically signed by: Earnest Ohara On 07/03/2019 18:33:07 PM
[2019-07-03] MEDS ORDERED: MORPHINE 4 MG/ML 1ML VIAL/SYRINGE (J2270) IV ONE (19:00)
[2019-07-03] MEDS ORDERED: ONDANSETRON 4MG/2ML VIAL (J2405) IV ONE (19:00)
--- NOTE | 2019-07-03 19:13 | HPEPDOC ---
[facility] [place] Medical History & Physical Date of Admission Jul 03, 2019 Date of Service: Jul 03, 2019 Primary Care Physician: A Other Provider Marianela Ma Attending Physician: LUIS JOHNSON MD History and Physical TIME OF SERVICE: 8:55 PM CHIEF COMPLAINT: Abdominal pain HISTORY OF PRESENT ILLNESS: This is a 33-year-old female who presents with complaints of constant 10/10 in severity, nonradiating right upper quadrant and right flank pain for 3 days that occurred after tripping and falling on stairs. Prior to that she had a fever for about 1 week which stopped 2 days ago. Other associated symptoms include nausea, emesis that was white in color with specks of black, diarrhea that was white in color, and orange urine. REVIEW OF SYSTEMS: 12 point review of systems negative except as listed in HPI PAST MEDICAL/ SURGICAL HISTORY: Bipolar disorder ADHD Insomnia. Status post tubal ligation SOCIAL HISTORY: Smokes Reports she quit drinking heavily about 1 year ago. Per chart review, she had a history of alcohol abuse Denies recreational drug use. Per chart review, she has a history of cocaine abuse. FAMILY HISTORY: Father had a brain aneurysm Mother had cancer. Her aunt had a cholecystectomy. Diabetes ALLERGIES: Please see below. HOME MEDICATIONS: Please see below. PHYSICAL EXAMINATION: VITAL SIGNS: Please see below. GENERAL APPEARANCE: Well-nourished, well-developed, not in apparent distress, does not appear septic HEENT: Normocephalic, atraumatic, mucous brains moist and pink, there is mild scleral icterus CARDIOVASCULAR: Regular rate and rhythm. No murmurs, rubs or gallops LUNGS: Clear to auscultation bilaterally on room air ABDOMEN: There are no masses or ecchymosis on the abdomen, sounds are present. Abdomen is flat, soft and tender with palpation of the right mid and right upper quadrant. Patterson sign is positive. There is rebound tenderness with palpation of the right upper quadrant. MUSCULOSKELETAL: Range of motion is intact in all 4 extremities INTEGUMENT: Does not flushed. She has multiple tattoos NEUROLOGICAL: Cranial nerves 2-12 are grossly intact. Speech is not dysarthric PSYCHIATRIC: Alert and oriented, able to understand and follow commands LABORATORY DATA: See below. IMAGING: Chest x-ray "Impression: Negative PA and lateral chest. There is no interval change." CT of the abdomen and pelvis. "IMPRESSION: 1. Contracted gallbladder with mucosal enhancement and no definite stones. There is prominent pericholecystic fluid or wall edema. 2. Posterior central protrusion at L5-S1 measuring approximately 7 mm. 3. Nonspecific low attenuation focus in the liver measuring approximately 8 x 12 x 11 mm. 4. Fatty infiltration of the liver. 5. Question of minimal nonspecific colitis of the right colon involving the ascending and transverse colon. 6. Otherwise negative CT abdomen/pelvis. No renal or ureteral calculi are evident and there is no evidence of obstructive uropathy. Ultrasound of the gallbladder "IMPRESSION: 1. Hepatic hemangioma measuring 1.2 x 1.2 x 1.3 cm. 2. Contracted gallbladder with thick wall. No definite stones are seen. " ASSESSMENT: Ms. Gay is a 33-year-old female with a the past medical history of bipolar disorder, ADHD, and history of polysubstance abuse who will be admitted for evaluation of nausea, vomiting, diarrhea, abdominal pain, and transaminitis whose causes to be determined. PLAN: 1. Transaminitis Possibly due to viral or drug related hepatitis VS other cause to be determined Plan:admit to medical floor / follow-up hepatitis panel, and drug screen/per Dr. Payne NPO after midnight for ERCP tomorrow 2. Bradycardia Likely due to electrolyte imbalance. EKG showed sinus bradycardia Plan: telemetry/Replete potassium and follow-up mag / atropine PRN for HR sustained <30 3. Right sided abdominal flank pain The differential diagnosis includes pain due to trauma from falling VS , acute hepatitis VS biliary dyskinesia Report from CT of abdomen, ultrasound of the gallbladder, and LFTs have been reviewed. The lipase was unremarkable. Plan;ibuprofen and tramadol for pain/follow-up hepatitis panel, and drug screen 4. Nausea, vomiting and diarrhea Differential diagnosis includes gastroenteritis/colitis VS , withdrawal from drugs. The test was negative. She received one dose of Zosyn Plan: Zofran/IV fluids/follow-up drug screen 5. Leukocytopenia Possibly due to hepatitis versus benign Plan: Follow-up CBC and hepatitis panel. 6. Hypokalemia secondary to vomiting. Plan: Replete potassium and follow-up magnesium 7. Bipolar disorder / ADHD Plan: Resume home meds 8. Hepatic hemangioma. Likely benign. Plan: Follow up with PCP for repeat ultrasound in about 12 months DVT prophylaxis with SCDs. Disposition: likely discharge home after more than 2 midnight stay Vital Signs Vital Signs Date Time Temp Pulse Resp B/P (MAP) Pulse Ox O2 Delivery O2 Flow Rate FiO2 07/03/19 18:40 98.8 52 18 108/67 (81) 99 Room Air Laboratory Data Labs 24H Laboratory Tests 2 07/03/19 16:28: Monoscreen NEGATIVE 07/03/19 16:34: Nucleated Red Blood Cells % (auto) 0.0, Neutrophils 47, Lymphocytes (Manual) 28, Monocytes (Manual) 10H, Eosinophils (Manual) 6H, Basophils (Manual) 1, Atypical Lymphocytes 8H, Red Blood Cell Morphology NORMAL, Platelet Estimate NORMAL, Urine Color VEENA, Urine Appearance HAZY, Urine pH 7.0, Urine Specific [place] 1.029, Urine Protein 2+H, Urine Glucose (UA) NEGATIVE, Urine Ketones TRACEH, Urine Blood NEGATIVE, Urine Nitrite NEGATIVE, Urine Bilirubin 2+H, Urine Urobilinogen 4.0H, Urine Leukocyte Esterase NEGATIVE, Urine WBC (Auto) 3, Urine RBC (Auto) 0, Urine Hyaline Casts (Auto) 0, Urine Bacteria (Auto) 1+H, Urine Squamous Epithelial Cells 13, Urine Amorphous Sediment SMALLH, Urine Mucus (Auto) MODERATE, Urine Sperm (Auto) , Anion Gap 5L, Glomerular Filtration Rate > 60.0, Calcium Level 8.5, Total Bilirubin 4.3H, Direct Bilirubin 3.4H, Aspartate Amino Transf (AST/SGOT) 587H, Alanine Aminotransferase (ALT/SGPT) 1783H, Alkaline Phosphatase 199H, Total Creatine Kinase 28, Creatine Kinase MB < 1.0, Creatine Kinase MB Relative Index 3.57, Troponin I < 0.02, Total Protein 6.8, Albumin 2.9L, Albumin/Globulin Ratio 0.74L, Lipase 83 07/03/19 16:36: POC Beta HCG, Quantitative < 5.0 CBC/BMP Laboratory Tests 07/03/19 16:34 Home Medications Scheduled Dextroamphetamine/Amphetamine (Adderall 30 mg Tablet) 30 Mg Tablet, 30 MG PO BID Divalproex Sodium (Divalproex Sodium) 500 Mg Tab, 1,000 MG PO QAM Nicotine (Nicotine Patch) 21 Mg/24 Hr Patch.td24, 1 PATCH TOP DAILY REMOVED 07/02/2019, NOT REPLACED Trazodone HCl (Trazodone HCl) 100 Mg Tab, 100 MG PO QHS Allergies Coded Allergies: SEAFOOD (Verified Allergy, Severe, anaphylaxis, 01/14/19) bee venom protein (honey bee) (Verified Allergy, Severe, anaphylaxis, 01/14/19) divalproex sodium (Verified Allergy, Severe, severe blisters/hives, 01/14/19) shellfish derived (Verified Allergy, Severe, anaphylaxis, 01/14/19) A-FIB/CHADSVASC A-FIB History Current/History of A-Fib/PAF?: No Current PO Anticoag Therapy: No LUIS JOHNSON MD Jul 03, 2019 19:13
[2019-07-03] MEDS ORDERED: ACETAMINOPHEN TAB 650MG DOSE (2X325MG) PO PRN (19:15)
[2019-07-03] MEDS ORDERED: NS 1,000 ML IV ONE (19:15)
[2019-07-03] MEDS ORDERED: PIPERACILLIN/TAZOBACTAM SOD 3.375 GM in D5W MINI-BAG PLUS 50 ML IV ONE (19:15)
[2019-07-03 19:32] LABS: INR 1.36; PROTHROMBIN TIME 16.5 SECONDS (11.8-14.0)
[2019-07-03 19:33] LABS: PARTIAL THROMBOPLASTIN TIME 31.9 SECONDS (25.0-38.4)
--- NOTE | 2019-07-03 20:28 | REPVR ---
PROCEDURE INFORMATION: Exam: US Abdomen Limited, Right Upper Quadrant Exam date and time: 07/03/2019 7:59 PM Clinical history: 33 years old, female; Nausea and vomiting; Abdominal pain; Acute; Additional info: Transaminitis and abdominal pain TECHNIQUE: Imaging protocol: Real-time ultrasound of the abdomen with image documentation. Examination was focused on the right upper quadrant. COMPARISON: CT ABD/PEL W/IV CONTRAST ONLY 07/03/2019 5:42 PM FINDINGS: Liver: The liver demonstrates a hyperechoic nodule measuring 1.2 x 1.2 x 1.3 cm consistent with hemangioma. Gallbladder: The gallbladder is contracted. No definite stones are seen. The gallbladder wall appears to be thickened but not specifically measured. Common bile duct: The CBD measures 4 mm. Pancreas: The pancreas is normal. Right kidney: The right kidney is normal measuring 11.5 cm with no hydronephrosis. IMPRESSION: 1. Hepatic hemangioma measuring 1.2 x 1.2 x 1.3 cm. 2. Contracted gallbladder with thick wall. No definite stones are seen. Electronically signed by: Earnest Ohara On 07/03/2019 20:27:55 PM
[2019-07-03 20:40] VITALS: BP 101/67
[2019-07-03] MEDS ORDERED: traMADol ER 100MG TABLET (ULTRAM ER) PO ONE (21:45)
[2019-07-03] MEDS ORDERED: IBUPROFEN 600 MG TAB PO ONE (21:45)
[2019-07-03] MEDS ORDERED: ONDANSETRON 4 MG TAB (S0181) PO PRN (22:15)
[2019-07-03] MEDS ORDERED: POTASSIUM CHL PWD 20 MEQ PACKET PO ONE (22:15)
[2019-07-03 22:56] LABS: MAGNESIUM LEVEL 1.9 MG/DL (1.8-2.4)
[2019-07-03] MEDS: traZODone 100 MG TAB PO SCH (23:25)
[2019-07-03] MEDS: NICOTINE 14 MG/24 HR TRANSDERMAL TD SCH (23:25)
[2019-07-03] MEDS: NS 1,000 ML IV SCH (23:29)
[2019-07-04] MEDS: ADDERALL 5 MG TAB PO SCH ×3 (00:14→20:16)
[2019-07-04 00:20] LABS: HEMATOCRIT 32.5 % (36.0-47.0)
[2019-07-04 00:28] LABS: HEMOGLOBIN 10.9 g/dl (12.0-15.5)
[2019-07-04] MEDS ORDERED: ATROPINE SULF 1MG/10ML SYRINGE (J0461) IV PRN (04:30)
[2019-07-04 06:00] VITALS: BP 108/53
[2019-07-04] MEDS: NS 1,000 ML IV SCH (06:01)
[2019-07-04 06:10] LABS: HEMATOCRIT 31.8 % (36.0-47.0); HEMOGLOBIN 10.6 g/dl (12.0-15.5); MEAN CORPUSCULAR HEMOGLOBIN 30.8 pg (27.0-33.0); MEAN CORPUSCULAR HGB CONC 33.3 g/dl (32.0-36.5); MEAN CORPUSCULAR VOLUME 92.4 fl (80.0-96.0); PLATELET COUNT, AUTOMATED 115 10^3/uL (150-450); RED BLOOD COUNT 3.44 10^6/uL (4.00-5.40); WHITE BLOOD COUNT 2.7 10^3/uL (4.0-10.0)
[2019-07-04 06:44] LABS: ALBUMIN 2.2 GM/DL (3.2-5.2); ALT/SGPT 1113 U/L (12-78); BILIRUBIN,TOTAL 3.9 MG/DL (0.2-1.0); BLOOD UREA NITROGEN 5 MG/DL (7-18); CALCIUM LEVEL 7.5 MG/DL (8.5-10.1); CARBON DIOXIDE LEVEL 25 MEQ/L (21-32); CHLORIDE LEVEL 113 MEQ/L (98-107); CREATININE FOR GFR 0.42 MG/DL (0.55-1.30); GLOMERULAR FILTRATION RATE > 60.0 (>60); GLUCOSE, FASTING 80 MG/DL (70-100); POTASSIUM SERUM 3.5 MEQ/L (3.5-5.1); SODIUM LEVEL 143 MEQ/L (136-145); TOTAL PROTEIN 5.3 GM/DL (6.4-8.2)
--- NOTE | 2019-07-04 07:02 | ED PDOC ---
Post-Departure Follow-Up radiology report faxed to Marianela Ma Sarah MD Jul 04, 2019 07:02
[2019-07-04] MEDS ORDERED: NS 1,000 ML IV ONE ×2 (08:00→08:45)
[2019-07-04] MEDS ORDERED: traMADol 50 MG TAB PO ONE (08:00)
[2019-07-04] MEDS ORDERED: oxyCODONE 5MG TAB PO ONE (08:15)
[2019-07-04] MEDS ORDERED: KETOROLAC 30 MG/ML VIAL (J1885) IV ONE (08:15)
[2019-07-04] MEDS: PANTOPRAZOLE 40MG INJ (PROTONIX) (C9113) IV SCH (08:29)
[2019-07-04 08:31] LABS: AMPHETAMINES LEVEL URINE POSITIVE (NEGATIVE); BARBITURATES URINE NEGATIVE (NEGATIVE); BENZODIAZEPINES URINE NEGATIVE (NEGATIVE); CANNABINOIDS URINE POSITIVE (NEGATIVE); COCAINE METABOLITE URINE POSITIVE (NEGATIVE); METHADONE URINE NEGATIVE (NEGATIVE); OPIATES URINE POSITIVE (NEGATIVE); PHENCYCLIDINE URINE NEGATIVE (NEGATIVE)
[2019-07-04] MEDS: NICOTINE 14 MG/24 HR TRANSDERMAL TD SCH (08:32)
[2019-07-04] MEDS: DIVALPROEX 500 MG TAB PO SCH (08:32)
[2019-07-04 09:35] LABS: ACETAMINOPHEN LEVEL < 2.0 UG/ML (10.0-30.0)
[2019-07-04 12:49] LABS: HEPATITIS A ANTIBODY IGM POSITIVE (NEGATIVE); HEPATITIS B CORE ANTIBODY IGM NEGATIVE (NEGATIVE); HEPATITIS B SURFACE ANTIGEN NEGATIVE (NEGATIVE)
[2019-07-04 12:51] LABS: HEMATOCRIT 33.1 % (36.0-47.0); HEMOGLOBIN 10.9 g/dl (12.0-15.5)
[2019-07-04 13:28] LABS: ACETAMINOPHEN LEVEL < 2.0 UG/ML (10.0-30.0); FERRITIN 229 NG/ML (8-252); IRON (FE) 95 UG/DL (50-170); TOTAL IRON BINDING CAPACITY 226 UG/DL (250-450)
[2019-07-04 14:00] VITALS: BP 99/50
--- NOTE | 2019-07-04 15:44 | IPNPDOC ---
Date Seen The patient was seen on 07/04/19. Progress Note SUBJECTIVE: Patient was seen at bedside this morning. She reported no improvement in her pain or current status. She did report that the Zofran has improved her vomiting and she hasn't had any episodes since yesterday. She explains she's never had any episodes like this before. She denied any history of IV drug use or illicit substance abuse besides marijuana.. She cannot recall any recent episodes of consuming uncooked foods., She complained of hunger considering her nothing by mouth status prior to ERCP this afternoon. Denies chest pain, shortness of breath, nausea. OBJECTIVE PHYSICAL EXAMINATION: VITAL SIGNS: Please see below. GENERAL: Patient is pleasant and cooperative, sitting up comfortably in bed, alert and oriented in no acute distress Skin: Multiple tattoos noted on exam, no obvious skin lesions or sites of IV drug use noted. HEENT: Normocephalic, atraumatic. No scleral icterus. PERRLA. EOMI. no nasal discharge. No tracheal deviation. No obvious swollen lymph nodes CARDIOVASCULAR: Regular rate and rhythm. Normal S1 and S2. No murmurs, gallops or rubs noted RESPIRATORY: Lungs clear to auscultation bilaterally. ABDOMINAL: No obvious lesions noted. Normal bowel sounds in all 4 quadrants. Liver border noted beyond costal margin. Extremely tender to both light and deep palpation, dullness to percussion noted in right upper quadrant, tympanic throughout other 3. EXTREMITIES: 2/4 pulses noted throughout. No leg swelling or tenderness NEUROLOGICAL: A&O x3. Spontaneous movements of all extremities. No focal deficits noted PSYCHOLOGICAL: Mood and affect were appropriate LABORATORY DATA, MICROBIOLOGY: Please see below. 07/03/2019. Chest x-ray: Negative PA and lateral chest. There is no interval change 07/03/2019 abdomen/pelvis CT: 1. Contracted gallbladder with mucosal enhancement and no definite stones. Prominent pericholecystic fluid or wall edema. 2. Post erior central protrusion at L5-S1 measuring approximately 7 mm 3. Nonspecific low-attenuation focus in the liver measuring approximately 8 x 12 x 11 mm 4. Fatty infiltration of the liver. 5. Question of minimal nonspecific colitis of the right colon involving the ascending and transverse colon. 6. Otherwise, negative CT abdomen/pelvis. No renal or ureteral calculi are evident and there is no evidence of obstructive uropathy 07/03/2019 gallbladder ultrasound: 1. Hepatic hemangioma measuring 1.2. I 1.2 x 1.3 cm 2. Contracted gallbladder with thick wall. No definite stones are seen. ASSESSMENT AND PLAN: This is a 33-year-old white female with past medical history of bipolar disorder, ADHD, S/P tubal ligation presenting with 3 days of 1010 RUQ abdominal and flank pain, nausea, and vomiting most likely secondary to acute hepatitis or biliary dyskinesia found to have positive hep a serology. PROBLEMS: Transaminitis -AST at 332, ALT at 1113 both downtrending -Serology returned positive for Hep A -This explains elevated transaminases and RUQ pain, however this doesn't explain her pericholecystic fluid and thickened wall. -Pt undergoing ERCP this afternoon -Supportive care for Hep A Bradycardia -Pulse stable at 52 -Chloride at 113, Calcium at 7.5 -EKG showed sinus bradycardia Right sided abdominal flank pain -Pt tested positive for Hep A IgM -acute hepatitis VS biliary dyskinesia -Imaging (see above) -Ibuprofen 600mg PRN q 6hrs Nausea, vomiting and diarrhea -nonspecific colitis noted on CT - test was negative. -s/p 1 dose of Zosyn -No further episodes of vomiting with IV Zofran Leukocytopenia -WBC down to 2.7 from 3.7 -Continue to monitor Hypokalemia secondary to vomiting. -Resolved Bipolar disorder / ADHD -Continue home meds Hepatic hemangioma. -Likely benign. -Follow up with PCP for repeat ultrasound in about 12 months DVT prophylaxis with SCDs. DISPOSITION: Awaiting results of ERCP Attending Physician Addendum: I have independently interviewed and examined the patient at the bedside, and agree with the documented physical findings as management plan as documented above, which has been discussed with the patient and my Resident physician and medical student. VS, I&O, 24H, Fishbone Vital Signs/I&O Vital Signs Date Time Temp Pulse Resp B/P (MAP) Pulse Ox O2 Delivery O2 Flow Rate FiO2 07/04/19 09:01 17 07/04/19 08:31 52 94/56 07/04/19 06:00 97.6 98 Room Air I&O- Last 24 Hours up to 6 AM 07/04/19 06:00 Intake Total 2745 ml Output Total 325 ml Balance 2420 ml Laboratory Data 24H LABS Laboratory Tests 2 07/03/19 16:28: Prothrombin Time 16.5H, Prothromb Time International Ratio 1.36, Activated Partial Thromboplast Time 31.9, Hepatitis A IgM Antibody POSITIVEA, Hepatitis B Surface Antigen NEGATIVE, Hepatitis B Core IgM Antibody NEGATIVE, Hepatitis C Antibody Index 0.0, Monoscreen NEGATIVE 07/03/19 16:34: Nucleated Red Blood Cells % (auto) 0.0, Neutrophils 47, Lymphocytes (Manual) 28, Monocytes (Manual) 10H, Eosinophils (Manual) 6H, Basophils (Manual) 1, Atypical Lymphocytes 8H, Red Blood Cell Morphology NORMAL, Platelet Estimate NORMAL, Urine Color VEENA, Urine Appearance HAZY, Urine pH 7.0, Urine Specific [place] 1.029, Urine Protein 2+H, Urine Glucose (UA) NEGATIVE, Urine Ketones TRACEH, Urine Blood NEGATIVE, Urine Nitrite NEGATIVE, Urine Bilirubin 2+H, Urine Urobilinogen 4.0H, Urine Leukocyte Esterase NEGATIVE, Urine WBC (Auto) 3, Urine RBC (Auto) 0, Urine Hyaline Casts (Auto) 0, Urine Bacteria (Auto) 1+H, Urine Squ amous Epithelial Cells 13, Urine Amorphous Sediment SMALLH, Urine Mucus (Auto) MODERATE, Urine Sperm (Auto) , Anion Gap 5L, Glomerular Filtration Rate > 60.0, Calcium Level 8.5, Magnesium Level 1.9, Total Bilirubin 4.3H, Direct Bilirubin 3.4H, Aspartate Amino Transf (AST/SGOT) 587H, Alanine Aminotransferase (ALT/SGPT) 1783H, Alkaline Phosphatase 199H, Total Creatine Kinase 28, Creatine Kinase MB < 1.0, Creatine Kinase MB Relative Index 3.57, Troponin I < 0.02, Total Protein 6.8, Albumin 2.9L, Albumin/Globulin Ratio 0.74L, Lipase 83 07/03/19 16:36: POC Beta HCG, Quantitative < 5.0 07/04/19 05:22: Nucleated Red Blood Cells % (auto) 0.0, Anion Gap 5L, Glomerular Filtration Rate > 60.0, Calcium Level 7.5L, Total Bilirubin 3.9H, Aspartate Amino Transf (AST/SGOT) 332H, Alanine Aminotransferase (ALT/SGPT) 1113H, Alkaline Phosphatase 152H, Total Protein 5.3#L, Albumin 2.2#L, Albumin/Globulin Ratio 0.71L, Acetaminophen Level < 2.0L 07/04/19 07:53: Urine Opiates Screen POSITIVEH, Urine Methadone Screen NEGATIVE, Urine Barbiturates Screen NEGATIVE, Urine Phencyclidine Screen NEGATIVE, Urine Amphetamines Screen POSITIVEH, Urine Benzodiazepines Screen NEGATIVE, Urine Cocaine Metabolite Screen POSITIVEH, Urine Cannabinoids Screen POSITIVEH 07/04/19 09:01: Lactic Acid Level 0.9 07/04/19 12:31: Iron Level 95, Total Iron Binding Capacity 226L, Transferrin % Saturation 42.0, Ferritin 229, Acetaminophen Level < 2.0L CBC/BMP Laboratory Tests 07/03/19 16:34 07/04/19 00:04 07/04/19 05:22 07/04/19 12:31 Microbiology Microbiology 07/04/19 Stool Occult Blood (BEE), Ordered Pending 07/03/19 Blood Culture, Received Pending 07/03/19 Blood Culture, Received Pending DEBORA OROZCO-3 Jul 04, 2019 15:44 KWASI ROCK MD Jul 04, 2019 16:43
[2019-07-04] MEDS ORDERED: IBUPROFEN 600 MG TAB PO PRN (15:45)
[2019-07-04 16:15] VITALS: BP 128/78
[2019-07-04] MEDS: oxyCODONE 5MG TAB PO PRN (17:27)
[2019-07-04] MEDS: traZODone 100 MG TAB PO SCH (20:16)
--- NOTE | 2019-07-04 21:37 | CR.PDOC ---
General Date of Consultation: Jul 04, 2019 Referring Provider: LUIS JOHNSON MD Attending Physician: RIDDHI JEROME MD Consultation REASON FOR CONSULTATION/CHIEF COMPLAINT: Abnormal Liver panel HISTORY OF PRESENT ILLNESS: 33-year-old female patient with behavioural issues, Active IVDA, ( last use 1 month ago, active smoker, prior heavy alcohol use, decreased to one beer on occasions) presented to ER for complaints of right upper quadrant pain and right flank with reported fall prior to the onset of pain. Patient was noted to have abnormal liver tests and GI was consulted for the same. Patient reports her symptoms started around 1 week ago with fever, then flu like illness, later has a fall on stairs leading the back pain and epigastric/ right upper quadrant pain. Patient also reports poor appetite with nausea and few episodes of vomiting as well. Patient denies any diarrhea, sick contacts. 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 Off note: Patient reports active using drugs with last IVDA use 1 month ago, denies any recent use of cocaine ( but Utox positive) and daily use of marijuana . Patient denies any episode of Loss of consciousness or lightheadedness with drugs. She also denies any other OTC herbal supplements. ALLERGIES: Please see below. HOME MEDICATIONS: Please see below. PAST MEDICAL HISTORY: As above. PAST SURGICAL HISTORY: Tubal ligation. FAMILY HISTORY: NO GI cancers. SOCIAL HISTORY:As above. REVIEW OF SYSTEMS: CONSTITUTIONAL: afebrile, but prior subjective fevers. HEENT: Mild icterus. jaundice. CARDIOVASCULAR: NO chest pain, RESPIRATORY: No shortness of breath. GENITOURINARY: No burning micturition, changein urine color noted as above. MUSCULOSKELETAL: NO joint pain. GASTROINTESTINAL: As above. SKIN: no rash. multiple tattoo robles on the arms. NEUROLOGICAL: NO focal weakness. ENDOCRINE: no heat or cold intolerance. HEMATOLOGIC/LYMPHATIC: NO gum bleeding. PHYSICAL EXAMINATION: VITAL SIGNS: Please see below. GENERAL APPEARANCE: No acute distress. HEENT: S1, S2 heard, no palpable lymphadenopathy, minimal scleral icterus. RESPIRATORY: Bilateral clear air entry. CARDIOVASCULAR: s1, s2 heard, no mumurs. ABDOMEN: Soft, mild to moderate tenderness in epigastric and right upper quadrant area with no rigidity or guarding. EXTREMITIES: NO pedal edema. NEUROLOGICAL: No focal deficits. reports back tenderness on the lumbar spinal area. no sensory deficits. LABORATORY DATA: Please see below. Impression: -- Subjective fevers, with flu like illness, followed with fall and right upper quadrant abdominal pain, nausea, vomiting with labs showing new onset abnormal liver panel in patient with acitve IVDA use, imaging showing normal CBD and no gallstones -- likely acute viral hepatitis vs Drug induced liver injury vs isc hemic hepatitis vs biliary obstruction. -- Acute viral hepatitis workup reported positive for acute hepatitis A infection. Recommendations: -- IV hydration -- IV Pantoprazole 40 mg once daily and when tolerated oral diet to place on oral PPI for course of 6 weeks.. -- Acute viral hepatitis work up -- reported -- positive for viral hepatitis A. -- Supportive care. ERICKA to be updated -- Discussed with primary team as well. -- Continue thiamine, folic acid and vitamin B12. -- Monitor liver panel, PT/PTT, and renal function daily and if worsening trend or develops liver failure, will need transfer to liver center. -- Patient is extensively educated about cessation of drug use, alcohol, smoking. -- Avoid hepatotoxic medications including NSAIDs. -- Advance diet as tolerated. -- Patient was initially tentatively placed NPO from ER for possible ERCP untill all work up is reported. Based on the work up, there is no evidence of biliary obstruction and would not require ERCP. The procedure is cancelled, patient and primary team updated. -- Patient close contacts and family members needs vaccination and strict precautions. -- Depending on clinical course, patient need to follow up with PCP and repeat liver tests, HBsAb in 4-6 weeks, and if not immune to hepatitis B, she will need vaccination electively. -- Recall GI if any change in status. Plan of care discussed with patient and all her questions answered. Recommendations communicated to primary team. Vital Signs/I&O Vital Signs Date Time Temp Pulse Resp B/P (MAP) Pulse Ox O2 Delivery O2 Flow Rate FiO2 07/04/19 17:57 17 07/04/19 16:15 97.5 53 128/78 (95) 99 Room Air I&O- Last 24 Hours up to 6 AM 07/04/19 06:00 Intake Total 2745 ml Output Total 325 ml Balance 2420 ml Laboratory Data Labs 24H Laboratory Tests 2 07/04/19 05:22: Nucleated Red Blood Cells % (auto) 0.0, Anion Gap 5L, Glomerular Filtration Rate > 60.0, Calcium Level 7.5L, Total Bilirubin 3.9H, Aspartate Amino Transf (AST/SGOT) 332H, Alanine Aminotransferase (ALT/SGPT) 1113H, Alkaline Phosphatase 152H, Total Protein 5.3#L, Albumin 2.2#L, Albumin/Globulin Ratio 0.71L, Acetaminophen Level < 2.0L 07/04/19 07:53: Urine Opiates Screen POSITIVEH, Urine Methadone Screen NEGATIVE, Urine Barbiturates Screen NEGATIVE, Urine Phencyclidine Screen NEGATIVE, Urine Amphetamines Screen POSITIVEH, Urine Benzodiazepines Screen NEGATIVE, Urine Cocaine Metabolite Screen POSITIVEH, Urine Cannabinoids Screen POSITIVEH 07/04/19 09:01: Lactic Acid Level 0.9 07/04/19 12:31: Acetaminophen Level < 2.0L, Iron Level 95, Total Iron Binding Capacity 226L, Transferrin % Saturation 42.0, Ferritin 229 CBC/BMP Laboratory Tests 07/04/19 00:04 07/04/19 05:22 07/04/19 12:31 Microbiology Microbiology 07/04/19 Stool Occult Blood (BEE), Ordered Pending 07/03/19 Blood Culture - Preliminary, Resulted No growth after 24 hours . All specim... 07/03/19 Blood Culture - Preliminary, Resulted No growth after 24 hours . All specim... Allergies Coded Allergies: SEAFOOD (Verified Allergy, Severe, anaphylaxis, 01/14/19) bee venom protein (honey bee) (Verified Allergy, Severe, anaphylaxis, 01/14/19) divalproex sodium (Verified Allergy, Severe, severe blisters/hives, 01/14/19) shellfish derived (Verified Allergy, Severe, anaphylaxis, 01/14/19) Home Medications Scheduled Dextroamphetamine/Amphetamine (Adderall 30 mg Tablet) 30 Mg Tablet, 30 MG PO BID, (Reported) Divalproex Sodium (Divalproex Sodium) 500 Mg Tab, 1,000 MG PO QAM, (Reported) Nicotine (Nicotine Patch) 21 Mg/24 Hr Patch.td24, 1 PATCH TOP DAILY, (Reported) REMOVED 07/02/2019, NOT REPLACED Trazodone HCl (Trazodone HCl) 100 Mg Tab, 100 MG PO QHS, (Reported) RIDDHI JEROME MD Jul 04, 2019 21:37
[2019-07-05 00:20] LABS: HEMATOCRIT 34.7 % (36.0-47.0); HEMOGLOBIN 11.3 g/dl (12.0-15.5)
[2019-07-05] MEDS: oxyCODONE 5MG TAB PO PRN ×2 (00:34→07:37)
[2019-07-05 06:00] VITALS: BP 93/60
[2019-07-05] MEDS: PANTOPRAZOLE 40MG INJ (PROTONIX) (C9113) IV SCH (08:38)
[2019-07-05] MEDS: ADDERALL 5 MG TAB PO SCH ×2 (08:39→22:50)
[2019-07-05] MEDS: DIVALPROEX 500 MG TAB PO SCH (08:39)
[2019-07-05] MEDS: MULTIVITAMINS/MINERALS THERAP 1 TAB PO SCH (08:40)
[2019-07-05] MEDS: THIAMINE 100 MG TAB PO SCH (08:40)
[2019-07-05] MEDS: NICOTINE 14 MG/24 HR TRANSDERMAL TD SCH (08:40)
[2019-07-05] MEDS: FOLIC ACID 1 MG TAB PO SCH (08:40)
[2019-07-05 09:35] LABS: INR 1.28; PROTHROMBIN TIME 15.7 SECONDS (11.8-14.0)
[2019-07-05] MEDS ORDERED: SENNA 8.6 MG TAB (SENOKOT) PO ONE (10:00)
[2019-07-05 10:04] LABS: ALBUMIN 2.2 GM/DL (3.2-5.2); BILIRUBIN,TOTAL 5.3 MG/DL (0.2-1.0); BLOOD UREA NITROGEN 2 MG/DL (7-18); CALCIUM LEVEL 8.2 MG/DL (8.5-10.1); CARBON DIOXIDE LEVEL 26 MEQ/L (21-32); CHLORIDE LEVEL 105 MEQ/L (98-107); CREATININE FOR GFR 0.41 MG/DL (0.55-1.30); GLOMERULAR FILTRATION RATE > 60.0 (>60); GLUCOSE, FASTING 65 MG/DL (70-100); POTASSIUM SERUM 3.8 MEQ/L (3.5-5.1); SODIUM LEVEL 138 MEQ/L (136-145); TOTAL PROTEIN 5.3 GM/DL (6.4-8.2)
[2019-07-05 10:05] LABS: ALT/SGPT 1058 U/L (12-78)
--- NOTE | 2019-07-05 11:37 | IPNPDOC ---
Date Seen The patient was seen on 07/05/19. Progress Note SUBJECTIVE: Patient was seen at bedside this morning. She reported improvement compared to yesterday. She still has minor pain but it is significantly improved. She denies any further episodes of Nausea or vomiting. She denies any SOB, chest pain, changes in mentation, jaundice or neurologic deficits. OBJECTIVE PHYSICAL EXAMINATION: VITAL SIGNS: Please see below. GENERAL: Patient is pleasant and cooperative, sitting up comfortably in bed, alert and oriented in no acute distress Skin: Multiple tattoos noted on exam, no obvious skin lesions or sites of IV drug use noted. HEENT: Normocephalic, atraumatic. No scleral icterus. PERRLA. EOMI. no nasal discharge. No tracheal deviation. No obvious swollen lymph nodes CARDIOVASCULAR: Regular rate and rhythm. Normal S1 and S2. No murmurs, gallops or rubs noted RESPIRATORY: Lungs clear to auscultation bilaterally. ABDOMINAL: No obvious lesions noted. Normal bowel sounds in all 4 quadrants. Liver border noted beyond costal margin. Pt is warp bleaching vat tender in her RUQ but less severe than yesterday. EXTREMITIES: 2/4 pulses noted throughout. No leg swelling or tenderness NEUROLOGICAL: A&O x3. Spontaneous movements of all extremities. No focal deficits noted PSYCHOLOGICAL: Mood and affect were appropriate LABORATORY DATA, MICROBIOLOGY: Please see below. 07/03/2019. Chest x-ray: Negative PA and lateral chest. There is no interval change 07/03/2019 abdomen/pelvis CT: 1. Contracted gallbladder with mucosal enhancement and no definite stones. Prominent pericholecystic fluid or wall edema. 2. Posterior central protrusion at L5-S1 measuring approximately 7 mm 3. Nonspecific low-attenuation focus in the liver measuring approximately 8 x 12 x 11 mm 4. Fatty infiltration of the liver. 5. Question of minimal nonspecific colitis of the right colon involving the ascending and transverse colon. 6. Otherwise, negative CT abdomen/pelvis. No renal or ureteral calculi are evident and there is no evidence of obstructive uropathy 07/03/2019 gallbladder ultrasound: 1. Hepatic hemangioma measuring 1.2. I 1.2 x 1.3 cm 2. Contracted gallbladder with thick wall. No definite stones are seen. ASSESSMENT AND PLAN: This is a 33-year-old white female with past medical history of bipolar disorder, ADHD, S/P tubal ligation presenting with 3 days of 06/02 RUQ abdominal and flank pain, nausea, and vomiting most likely secondary to acute hepatitis or biliary dyskinesia found to have positive hep a serology. PROBLEMS: Hepatitis A -AST elevated at 512 from 332 -ALT decreased to 1058 from 1113 -PT decreased to 15.7 from 16.5 -Per Dr. Payne, Supportive care, follow with PCP for Hep B screen and follow up Liver function -Has been reported to [facility] Plan: Will keep her one more day to monitor downtrending of Liver enzymes. Bradycardia -Pulse stable at 77 -Chloride Stable at 105, Calcium at 8.2 up from 7.5 -EKG showed sinus bradycardia Right sided abdominal flank pain -Pt reported improved pain -Secondary to Hep A -Imaging (see above) -Ibuprofen 600mg PRN q 6hrs -Currently Oxycodone for pain q6hrs. Elevation in transaminates could be contributed to oxycodone,trazodone, ibuprofen or ketorolac, unlikely related to Adderall. Plan: Discontinue pain medications and monitor for liver enzyme improvement. Nausea, vomiting and diarrhea -nonspecific colitis noted on CT - test was negative. -s/p 1 dose of Zosyn -No further episodes of vomiting with IV Zofran Leukocytopenia -WBC down to 2.7 from 3.7 on 07/04 -Continue to monitor Hypokalemia secondary to vomiting. -Resolved Bipolar disorder / ADHD -Continue home meds Hepatic hemangioma. -Likely benign. -Follow up with PCP for repeat ultrasound in about 12 months DVT prophylaxis with SCDs. DISPOSITION: Awaiting improvement in liver enzymes. ATTENDING NOTE I have personally evaluated and examined the patient. Discussed with residents and student regarding plan of care and agree with the above assessment and plan. Patient had reports of worsening abdominal pain late morning but received pain medication and reported feeling better. Resident had discussed with GI, to get upper GI series. Liver function noted with bidrectional changes in enzymes. To monitor and repeat in AM. VS, I&O, 24H, Fishbone Vital Signs/I&O Vital Signs Date Time Temp Pulse Resp B/P (MAP) Pulse Ox O2 Delivery O2 Flow Rate FiO2 07/05/19 08:07 18 07/05/19 06:00 97.8 77 93/60 (71) 97 Room Air I&O- Last 24 Hours up to 6 AM 07/05/19 06:00 Intake Total 1600 ml Output Total 800 ml Balance 800 ml Laboratory Data 24H LABS Laboratory Tests 2 07/04/19 12:31: Iron Level 95, Total Iron Binding Capacity 226L, Transferrin % Saturation 42.0, Ferritin 229, Acetaminophen Level < 2.0L 07/05/19 08:56: Prothrombin Time 15.7H, Prothromb Time International Ratio 1.28, Anion Gap 7L, Glomerular Filtration Rate > 60.0, Calcium Level 8.2L, Total Bilirubin 5.3H, Aspartate Amino Transf (AST/SGOT) 512H, Alanine Aminotransferase (ALT/SGPT) 1058H, Alkaline Phosphatase 227H, Total Protein 5.3L, Albumin 2.2L, Albumin/Globulin Ratio 0.71L CBC/BMP Laboratory Tests 07/04/19 12:31 07/05/19 00:11 07/05/19 08:56 Microbiology Microbiology 07/04/19 Stool Occult Blood (BEE), Ordered Pending 07/03/19 Blood Culture - Preliminary, Resulted No growth after 24 hours . All specim... 07/03/19 Blood Culture - Preliminary, Resulted No growth after 24 hours . All specim... DEBORA OROZCO-Catrachita Jul 05, 2019 11:37 ESTEFANY MARIE MD Jul 05, 2019 19:11
[2019-07-05 13:10] VITALS: BP 92/50
[2019-07-05 14:00] VITALS: BP 110/60
[2019-07-05] MEDS ORDERED: NS 500 ML IV ONE (14:00)
[2019-07-05] MEDS: METHADONE 5 MG TAB (S0109) PO SCH (15:09)
[2019-07-05 18:50] VITALS: BP 112/75
[2019-07-05 22:00] VITALS: BP 109/62
[2019-07-05] MEDS: traZODone 100 MG TAB PO SCH (22:50)
[2019-07-06 00:06] LABS: ANTI-MITOCHONDRIAL ANTIBODY <20.0 Units (0.0-20.0); ANTINUCLEAR ANTIBODIES DIRECT Negative (Negative); CERULOPLASMIN 19.4 mg/dL (19.0-39.0)
[2019-07-06 06:00] VITALS: BP 105/60
[2019-07-06 06:24] LABS: HEMATOCRIT 33.8 % (36.0-47.0); HEMOGLOBIN 11.7 g/dl (12.0-15.5); MEAN CORPUSCULAR HGB CONC 34.6 g/dl (32.0-36.5); MEAN CORPUSCULAR VOLUME 89.7 fl (80.0-96.0); PLATELET COUNT, AUTOMATED 175 10^3/uL (150-450); RED BLOOD COUNT 3.77 10^6/uL (4.00-5.40); WHITE BLOOD COUNT 3.4 10^3/uL (4.0-10.0)
[2019-07-06 06:35] LABS: INR 1.31
[2019-07-06 06:51] LABS: ALBUMIN 2.1 GM/DL (3.2-5.2); ALT/SGPT 951 U/L (12-78); BILIRUBIN,TOTAL 4.8 MG/DL (0.2-1.0); BLOOD UREA NITROGEN 4 MG/DL (7-18); CALCIUM LEVEL 7.6 MG/DL (8.5-10.1); CARBON DIOXIDE LEVEL 28 MEQ/L (21-32); CHLORIDE LEVEL 103 MEQ/L (98-107); GLOMERULAR FILTRATION RATE > 60.0 (>60); GLUCOSE, FASTING 77 MG/DL (70-100); POTASSIUM SERUM 3.5 MEQ/L (3.5-5.1); SODIUM LEVEL 138 MEQ/L (136-145); TOTAL PROTEIN 5.3 GM/DL (6.4-8.2)
[2019-07-06 08:40] LABS: MAGNESIUM LEVEL 1.9 MG/DL (1.8-2.4)
[2019-07-06] MEDS: ADDERALL 5 MG TAB PO SCH (10:01)
[2019-07-06] MEDS: PANTOPRAZOLE 40MG INJ (PROTONIX) (C9113) IV SCH (10:02)
[2019-07-06] MEDS: THIAMINE 100 MG TAB PO SCH (10:02)
[2019-07-06] MEDS: DIVALPROEX 500 MG TAB PO SCH (10:02)
[2019-07-06] MEDS: MULTIVITAMINS/MINERALS THERAP 1 TAB PO SCH (10:02)
[2019-07-06] MEDS: NICOTINE 14 MG/24 HR TRANSDERMAL TD SCH (10:02)
[2019-07-06] MEDS: METHADONE 5 MG TAB (S0109) PO SCH (10:03)
[2019-07-06] MEDS: FOLIC ACID 1 MG TAB PO SCH (10:03)
[2019-07-06] MEDS ORDERED: E-Z-GAS II EFFERVESCENT PACKET (SODIUM BICARB./CITRIC ACID/SIMETHICONE) As Ordered ONE (12:25)
[2019-07-06] MEDS ORDERED: E-Z-PAQUE 96% w/w SUSP 176GM BTL As Ordered ONE (12:25)
[2019-07-06] MEDS ORDERED: E-Z-HD 98% w/w 340GM SUSP BTL As Ordered ONE (12:25)
[2019-07-06] MEDS ORDERED: THIA100TA PO (13:58)
[2019-07-06] MEDS ORDERED: VITMTA PO (13:58)
[2019-07-06] MEDS ORDERED: FOLI1TAB11 PO (13:58)
[2019-07-06] MEDS ORDERED: TRAM50TA2 PO (13:58)
--- NOTE | 2019-07-06 14:18 | DS.PDOC ---
Discharge Summary General Date of Admission Jul 03, 2019 at 19:07 Date of Discharge 07/06/19 Primary Care Physician: A Attending Physician: ESTEFANY MARIE MD Specialist/Consultants Involve: RIDDHI JEROME MD Discharge Summary PROCEDURES PERFORMED DURING STAY: Upper GI series ADMITTING DIAGNOSES: 1. Abdominal pain, transaminitis DISCHARGE DIAGNOSES: 1. Hepatitis A COMPLICATIONS/CHIEF COMPLAINT: Abdominal pain with transaminitis HISTORY OF PRESENT ILLNESS/ HOSPITAL COURSE:This is a 33-year-old female who presents with complaints of constant 10/10 in severity, nonradiating right upper quadrant and right flank pain for 3 days that occurred after tripping and falling on stairs. Prior to that she had a fever for about 1 week which stopped 2 days ago. Other associated symptoms include nausea, emesis that was white in color with specks of black, diarrhea that was white in color, and orange urine. Her past medical history was significant for bipolar disorder, ADHD, insomnia, and polysubstance abuse. She admitted to recent use of crack cocaine 1 week prior to admission. Initial laboratory values show the patient had elevated AST and ALT, as well as positive for opiates, amphetamines, and cocaine. Viral panel was positive for hepatitis A. she was admitted for supportive management for hepatitis A, with a GI consultation for possible gallstones. Due to her abdominal pain and abnormal CT showing gallbladder mucosal enhancement. During her hospital stay. She was treated with pain management, IV fluid hydration. She was evaluated by GI, who recommended to stop all hepatotoxic drugs, manage patient supportively and trend liver function for possible liver failure. An upper GI study was also obtained during her stay due severe abdominal pain. Upper GI study was pending official read at discharge. However, preliminary films showed no obvious pathology requiring further in hospital stay. She was discharged in stable condition, after she was able to tolerate by mouth food. She was looking forward to going home. She was advised to follow-up with her PCP Marianela Ma within 3 days for recheck of her liver enzymes and liver function. She was advised to return to hospital for severe abdominal pain, change in bowel habits, and vomiting, as well as changes in skin coloration. Patient verbalizes an understanding. Patient was offered rehabilitation for her polysubstance abuse. Patient declined DISCHARGE MEDICATIONS: Please see below. ALLERGIES: Please see below. PHYSICAL EXAMINATION ON DISCHARGE: VITAL SIGNS: Please see below. GENERAL APPEARANCE: Alert no acute distress. SKIN: Warm, well perfused. THORAX: Symmetrical. LUNGS: Clear to auscultation bilaterally. HEART: Normal S1, S2. No murmurs, no rubs, no gallops ABDOMEN: Soft. No masses. Bowel sounds are present. Non-tenderness to palpation TRUNK/SPINE:Straight. EXTREMITIES: Moves all extremities equally. No gross deformities. PULSES: 2+ upper and lower extremity . PSYCHIATRIC EXAMINATION: LABORATORY DATA: Please see below. IMAGING: Gallbladder ultrasound 1. Hepatic hemangioma measuring 1.2 x 1.2 x 1.3 cm. 2. Contracted gallbladder with thick wall. No definite stones are seen. CT abdomen with contrast IMPRESSION: 1. Contracted gallbladder with mucosal enhancement and no definite stones. There is prominent pericholecystic fluid or wall edema. 2. Posterior central protrusion at L5-S1 measuring approximately 7 mm. 3. Nonspecific low attenuation focus in the liver measuring approximately 8 x 12 x 11 mm. 4. Fatty infiltration of the liver. 5. Question of minimal nonspecific colitis of the right colon involving the ascending and transverse colon. 6. Otherwise negative CT abdomen/pelvis. No renal or ureteral calculi are evident and there is no evidence of obstructive uropathy. Upper GI study, pending official read. No obvious pathology noted on films. PROGNOSIS: Stable ACTIVITY: As tolerated DIET:. Tolerated DISCHARGE PLAN: Home with close follow-up with PCPMarianela DISPOSITION: . DISCHARGE INSTRUCTIONS: 1. Follow-up with PCP within 3 days 2. Follow strict handwashing procedure, attempt to avoid contamination with close family members 3. Return if pain returns, or if jaundice develops, nausea, vomiting, or increased abdominal pain ITEMS TO FOLLOWUP ON ON OUTPATIENT: 1. Transaminitis 2. Liver function tests 3. Polysubstance abuse DISCHARGE CONDITION: Stable TIME SPENT ON DISCHARGE: Greater than 35 minutes. Vital Signs/I&Os Vital Signs Date Time Temp Pulse Resp B/P (MAP) Pulse Ox O2 Delivery O2 Flow Rate FiO2 07/06/19 06:00 97.8 57 17 105/60 (75) 98 Room Air I&O- Last 24 Hours up to 6 AM 07/06/19 06:00 Intake Total 2116 ml Output Total 500 ml Balance 1616 ml Laboratory Data Labs 24H Laboratory Tests 2 07/06/19 05:27: Nucleated Red Blood Cells % (auto) 0.0, Prothrombin Time 16.0H, Prothromb Time International Ratio 1.31, Anion Gap 7L, Glomerular Filtration Rate > 60.0, Calcium Level 7.6L, Magnesium Level 1.9, Total Bilirubin 4.8H, Aspartate Amino Transf (AST/SGOT) 493H, Alanine Aminotransferase (ALT/SGPT) 951H, Alkaline Phosphatase 250H, Total Protein 5.3L, Albumin 2.1L, Albumin/Globulin Ratio 0.66L CBC/BMP Laboratory Tests 07/06/19 05:27 Microbiology Microbiology 07/04/19 Stool Occult Blood (BEE), Ordered Pending 07/03/19 Blood Culture - Preliminary, Resulted No Growth after 48 hours. All Specime... 07/03/19 Blood Culture - Preliminary, Resulted No Growth after 48 hours. All Specime... Discharge Medications Scheduled Dextroamphetamine/Amphetamine (Adderall 30 mg Tablet) 30 Mg Tablet, 30 MG PO BID, (Reported) Divalproex Sodium (Divalproex Sodium) 500 Mg Tab, 1,000 MG PO QAM, (Reported) Folic Acid (Folic Acid) 1 Mg Tablet, 1 MG PO DAILY Multivitamins (Thera M Plus Tablet) 1 Each Tablet, 1 TAB PO DAILY Nicotine (Nicotine Patch) 21 Mg/24 Hr Patch.td24, 1 PATCH TOP DAILY, (Reported) REMOVED 07/02/2019, NOT REPLACED Sennosides (Senna) 8.6 Mg Tablet, 8.6 MG PO BID for constipation Thiamine Hcl (Vitamin B-1) 100 Mg Tablet, 100 MG PO DAILY Trazodone HCl (Trazodone HCl) 100 Mg Tab, 100 MG PO QHS, (Reported) Scheduled PRN Tramadol HCl (Tramadol HCl) 50 Mg Tablet, 50 MG PO BIDP PRN for pain Allergies Coded Allergies: SEAFOOD (Verified Allergy, Severe, anaphylaxis, 01/14/19) bee venom protein (honey bee) (Verified Allergy, Severe, anaphylaxis, 01/14/19) divalproex sodium (Verified Allergy, Severe, severe blisters/hives, 01/14/19) shellfish derived (Verified Allergy, Severe, anaphylaxis, 01/14/19) ATTENDING NOTE I have personally evaluated and examined the patient. Discussed with residents and student regarding plan of care and agree with the above assessment and plan of discharge. GME ATTESTATION GME ATTESTATION My faculty preceptor for this patient encounter was physically present during the encounter and was fully available. All aspects of the patient interview, examination, medical decision making process, and medical care plan development were reviewed and approved by the faculty preceptor. The faculty preceptor is a conde and concurs with the plan as stated in the body of this note and will attest to such by his/her cosignature. DONNELL YANG DO Jul 06, 2019 14:18 ESTEFANY MARIE MD Jul 07, 2019 07:53
[2019-07-06] MEDS ORDERED: SENN1TAB8 PO (17:13)
--- NOTE | 2019-07-06 17:27 | REP ---
Upper GI air contrast The procedure was performed under the direct supervision of Dr. Charlton. The images were reviewed with Dr. Charlton The personnel placement specialist film shows no organomegaly or pathological masses. The intestinal gas pattern is non-specific. There are tubal ligation clips visualized in the pelvis. Liquid barium and gas producing crystals were given in the erect position as well as liquid barium in the prone oblique position in order to perform a double contrast upper GI examination. The oral and pharyngeal stages of deglutition are unremarkable. Esophageal transport is prompt and efficient and there is no esophagitis, stricture, mucosal ring or hiatal hernia. Gastroesophageal reflux is not demonstrated on this examination. The stomach maria are normally outlined . The rugal folds are smooth and regular. There is no gastritis neoplasm or ulcer disease. In the duodenum there are thickened folds which likely represents duodenitis. There is no tank ulcer identified. The visualized portion of the proximal small bowel appears normal in course and caliber. Impression: There are thickened folds in the duodenum which likely represents duodenitis. There is no tank ulcer identified. 1.2 minutes of fluoro time was utilized for this procedure. Electronically Signed by GONZALEZ De Leon 07/06/2019 04:22 P Electronically Signed by Edilberto Charlton MD 07/06/2019 05:19 P
[2019-07-07 00:06] LABS: EBV AB TO NUCLEAR ANTIGEN <18.0 U/mL (0.0-17.9); EBV VIRAL CAPSID AG IgG 75.2 U/mL (0.0-17.9); EBV VIRAL CAPSID AG IgM <36.0 U/mL (0.0-35.9)
== END 2019-07-06 18:45 | disposition home or self-care (01) ==
LOC: M ED 15:41 → M ED INP 19:07 → M MSPAV 20:39
PROVIDERS: ADMIT Internal Medicine; ATTEND Student in an Organized Health Care Education/Training Program
DX: B15.9 Hepatitis A without hepatic coma (principal); R00.1 Bradycardia, unspecified; F31.9 Bipolar disorder, unspecified; F17.200 Nicotine dependence, unspecified, uncomplicated; G47.00 Insomnia, unspecified; F90.9 Attention-deficit hyperactivity disorder, unspecified type; E87.6 Hypokalemia; F10.10 Alcohol abuse, uncomplicated; F14.10 Cocaine abuse, uncomplicated; R11.2 Nausea with vomiting, unspecified; R10.31 Right lower quadrant pain; D18.03 Hemangioma of intra-abdominal structures; D72.819 Decreased white blood cell count, unspecified; R19.7 Diarrhea, unspecified; Z79.899 Other long term (current) drug therapy; Z91.013 Allergy to seafood; Z91.030 Bee allergy status; Z88.8 Allergy status to other drugs, medicaments and biological substances

== ENCOUNTER → 2019-07-11 | Outpatient (REF) | payer OTHER ==
[~2019-07-11] MED LIST changes: +FOLI1TAB11 PO; +SENN1TAB8 PO; +THIA100TA PO; +TRAM50TA2 PO; +VITMTA PO
[2019-07-11 14:25] LABS: ALBUMIN 2.5 GM/DL (3.2-5.2); ALT/SGPT 331 U/L (12-78); BILIRUBIN,TOTAL 1.8 MG/DL (0.2-1.0); BLOOD UREA NITROGEN 8 MG/DL (7-18); CALCIUM LEVEL 7.9 MG/DL (8.5-10.1); CARBON DIOXIDE LEVEL 27 MEQ/L (21-32); CHLORIDE LEVEL 107 MEQ/L (98-107); CREATININE FOR GFR 0.44 MG/DL (0.55-1.30); GLOMERULAR FILTRATION RATE > 60.0 (>60); GLUCOSE, FASTING 107 MG/DL (70-100); SODIUM LEVEL 140 MEQ/L (136-145); TOTAL PROTEIN 6.3 GM/DL (6.4-8.2)
[2019-07-11 15:41] LABS: HEPATITIS A ANTIBODY IGM POSITIVE (NEGATIVE)
== END ==
LOC: M LAB REF 12:45
PROVIDERS: ATTEND Nurse Practitioner Adult Health
DX: K75.9 Inflammatory liver disease, unspecified (principal)

== ENCOUNTER 2019-09-16 14:29 | Emergency (ER) | payer OTHER ==
[~2019-09-16] VITALS: Ht 142.2 cm; Wt 46.5 kg
[~2019-09-16 14:29] MED LIST changes: -TRAZ-163 PO; +TRAZ-257 PO
[2019-09-16] MEDS ORDERED: NS 1,000 ML IV ONE (15:00)
[2019-09-16 15:23] LABS: BASO # 0.1 10^3/uL (0.0-0.2); BASO % 0.8 % (0.0-1.0); EOS # 0.3 10^3/uL (0.0-0.5); EOS % 3.3 % (0.0-3.0); HEMATOCRIT 40.8 % (36.0-47.0); HEMOGLOBIN 13.2 g/dl (12.0-15.5); LYMPH # 2.2 10^3/uL (1.5-5.0); LYMPH % 24.1 % (24.0-44.0); MEAN CORPUSCULAR HEMOGLOBIN 30.3 pg (27.0-33.0); MEAN CORPUSCULAR HGB CONC 32.4 g/dl (32.0-36.5); MEAN CORPUSCULAR VOLUME 93.6 fl (80.0-96.0); MONO # 0.6 10^3/uL (0.0-0.8); MONO % 6.9 % (0.0-5.0); NEUTROPHILS # 5.9 10^3/uL (1.5-8.5); NEUTROPHILS % 64.7 % (36.0-66.0); PLATELET COUNT, AUTOMATED 249 10^3/uL (150-450); RED BLOOD COUNT 4.36 10^6/uL (4.00-5.40); WHITE BLOOD COUNT 9.1 10^3/uL (4.0-10.0)
[2019-09-16 16:04] LABS: HCG, SERUM QUALITATIVE NEGATIVE (NEGATIVE)
[2019-09-16 16:09] LABS: ACETAMINOPHEN LEVEL < 2.0 UG/ML (10.0-30.0); ALBUMIN 3.8 GM/DL (3.2-5.2); ALT/SGPT 33 U/L (12-78); BILIRUBIN,DIRECT 0.2 MG/DL (0.0-0.2); BILIRUBIN,TOTAL 0.3 MG/DL (0.2-1.0); BLOOD UREA NITROGEN 26 MG/DL (7-18); CALCIUM LEVEL 8.7 MG/DL (8.5-10.1); CARBON DIOXIDE LEVEL 27 MEQ/L (21-32); CHLORIDE LEVEL 108 MEQ/L (98-107); CPK CREATINE PHOSPHOKINASE 54 U/L (26-192); CREATININE FOR GFR 0.73 MG/DL (0.55-1.30); ETHYL ALCOHOL (ETHANOL) < 0.003 % (0.000-0.010); GLOMERULAR FILTRATION RATE > 60.0 (>60); GLUCOSE, FASTING 106 MG/DL (70-100); POTASSIUM SERUM 4.2 MEQ/L (3.5-5.1); SALICYLATE LEVEL 1.7 MG/DL (5.0-30.0); SODIUM LEVEL 140 MEQ/L (136-145); TOTAL PROTEIN 7.7 GM/DL (6.4-8.2)
[2019-09-16 16:09] LABS: AMPHETAMINES LEVEL URINE POSITIVE (NEGATIVE); BARBITURATES URINE NEGATIVE (NEGATIVE); BENZODIAZEPINES URINE NEGATIVE (NEGATIVE); CANNABINOIDS URINE POSITIVE (NEGATIVE); COCAINE METABOLITE URINE NEGATIVE (NEGATIVE); METHADONE URINE NEGATIVE (NEGATIVE); OPIATES URINE POSITIVE (NEGATIVE); PHENCYCLIDINE URINE NEGATIVE (NEGATIVE)
[2019-09-16 16:54] VITALS: BP 125/74
--- NOTE | 2019-09-16 20:36 | ECGEPIP ---
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
== END 2019-09-16 17:14 | disposition home or self-care (01) ==
LOC: M ED 14:29
DX: F19.10 Other psychoactive substance abuse, uncomplicated (principal); Z88.8 Allergy status to other drugs, medicaments and biological substances; Z91.018 Allergy to other foods; Z91.030 Bee allergy status
CPT/HCPCS: 80048; 80076; 80307; 82550; 84443; 84703; 85025; 93005; 93041; 94640; 94760; 96360; 96361; 99285; G0480

== ENCOUNTER 2019-12-29 07:31 | Emergency (ER) | payer OTHER ==
[~2019-12-29] VITALS: Ht 170.2 cm; Wt 59.1 kg
[~2019-12-29 07:31] MED LIST changes: +CYCL-707 PO; -CYCL10TA PO; +QUET100T2 PO; -QUET1TAB8 PO; +SENN-80 PO; -SENN1TAB8 PO
[2019-12-29] MEDS ORDERED: DIVA500T94 PO (07:56)
[2019-12-29] MEDS ORDERED: FOLI1TAB11 PO (07:56)
[2019-12-29] MEDS ORDERED: TRAZ-257 PO (07:56)
[2019-12-29 08:42] LABS: HEMATOCRIT 42.9 % (36.0-47.0); HEMOGLOBIN 14.9 g/dl (12.0-15.5); MEAN CORPUSCULAR HGB CONC 34.7 g/dl (32.0-36.5); MEAN CORPUSCULAR VOLUME 92.3 fl (80.0-96.0); PLATELET COUNT, AUTOMATED 236 10^3/uL (150-450); RED BLOOD COUNT 4.65 10^6/uL (4.00-5.40); WHITE BLOOD COUNT 7.6 10^3/uL (4.0-10.0)
[2019-12-29] MEDS ORDERED: LORazepam 2 MG TAB PO ONE (09:30)
[2019-12-29 10:02] LABS: ACETAMINOPHEN LEVEL < 2.0 UG/ML (10.0-30.0); ALBUMIN 3.6 GM/DL (3.2-5.2); ALT/SGPT 160 U/L (12-78); BILIRUBIN,DIRECT 0.2 MG/DL (0.0-0.2); BILIRUBIN,TOTAL 0.4 MG/DL (0.2-1.0); BLOOD UREA NITROGEN 13 MG/DL (7-18); CALCIUM LEVEL 8.9 MG/DL (8.5-10.1); CARBON DIOXIDE LEVEL 29 MEQ/L (21-32); CHLORIDE LEVEL 106 MEQ/L (98-107); CREATININE FOR GFR 0.61 MG/DL (0.55-1.30); ETHYL ALCOHOL (ETHANOL) < 0.003 % (0.000-0.010); GLOMERULAR FILTRATION RATE > 60.0 (>60); GLUCOSE, FASTING 83 MG/DL (70-100); POTASSIUM SERUM 3.8 MEQ/L (3.5-5.1); SALICYLATE LEVEL 2.5 MG/DL (5.0-30.0); SODIUM LEVEL 140 MEQ/L (136-145); THYROID STIMULATING HORMONE 0.712 uIU/ML (0.358-3.740); TOTAL PROTEIN 7.9 GM/DL (6.4-8.2)
[2019-12-29 10:17] LABS: AMPHETAMINES LEVEL URINE NEGATIVE (NEGATIVE); BARBITURATES URINE NEGATIVE (NEGATIVE); BENZODIAZEPINES URINE NEGATIVE (NEGATIVE); CANNABINOIDS URINE NEGATIVE (NEGATIVE); COCAINE METABOLITE URINE POSITIVE (NEGATIVE); METHADONE URINE NEGATIVE (NEGATIVE); OPIATES URINE POSITIVE (NEGATIVE); PHENCYCLIDINE URINE NEGATIVE (NEGATIVE)
[2019-12-29 11:18] LABS: HCG, SERUM QUALITATIVE NEGATIVE (NEGATIVE)
[2019-12-29 14:03] VITALS: BP 98/63
== END 2019-12-29 14:05 | disposition home or self-care (01) ==
LOC: M ED 07:31
DX: F19.10 Other psychoactive substance abuse, uncomplicated (principal); F31.9 Bipolar disorder, unspecified; F17.200 Nicotine dependence, unspecified, uncomplicated; Z91.013 Allergy to seafood; Z91.030 Bee allergy status; Z79.899 Other long term (current) drug therapy
CPT/HCPCS: 36415; 80048; 80076; 80307; 84443; 84703; 85027; 99284; G0480

== ENCOUNTER 2020-11-13 07:24 | Emergency (ER) | payer OTHER ==
[~2020-11-13] VITALS: Ht 170.2 cm; Wt 56.8 kg
[2020-11-13 07:25] VITALS: BP 116/61
[2020-11-13] MEDS ORDERED: NS 500 ML IV ONE (08:15)
[2020-11-13] MEDS ORDERED: ACETAMINOPHEN 325 MG TAB PO ONE (08:15)
== END 2020-11-13 10:25 | disposition left against medical advice (07) ==
LOC: M ED 07:24
DX: Z53.20 Procedure and treatment not carried out because of patient's decision for unspecified reasons (principal); F17.200 Nicotine dependence, unspecified, uncomplicated; F15.10 Other stimulant abuse, uncomplicated; F11.10 Opioid abuse, uncomplicated; F41.9 Anxiety disorder, unspecified; F90.9 Attention-deficit hyperactivity disorder, unspecified type; F31.9 Bipolar disorder, unspecified; J45.909 Unspecified asthma, uncomplicated; Z87.442 Personal history of urinary calculi; Z91.013 Allergy to seafood; Z91.030 Bee allergy status

== ENCOUNTER 2020-11-30 18:47 | Emergency (ER) | payer OTHER ==
[~2020-11-30] VITALS: Ht 139.7 cm; Wt 57.0 kg
[2020-11-30] MEDS ORDERED: IBUP200T45 PO (18:56)
[2020-11-30] MEDS ORDERED: ACET1TAB55 PO (18:56)
[2020-11-30 20:13] VITALS: BP 128/68
--- NOTE | 2020-11-30 21:16 | ECGEPIP ---
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
== END 2020-11-30 20:51 | disposition home or self-care (01) ==
LOC: M ED 18:47
DX: I95.1 Orthostatic hypotension (principal); J45.909 Unspecified asthma, uncomplicated; F19.10 Other psychoactive substance abuse, uncomplicated; Z88.8 Allergy status to other drugs, medicaments and biological substances; Z91.013 Allergy to seafood; Z91.030 Bee allergy status

== ENCOUNTER → 2020-12-12 | Outpatient (REF) | payer OTHER ==
[~2020-12-12] MED LIST changes: +ACET1TAB55 PO; +IBUP200T45 PO
== END ==
LOC: M LAB REF 16:12
PROVIDERS: ATTEND Surgery
DX: Z91.013 Allergy to seafood (principal)

== ENCOUNTER → 2021-12-18 | Outpatient (CLI) | payer OTHER ==
[~2021-12-18] MED LIST changes: -IBUP200T45 PO; +IBUP200T46 PO
== END ==
LOC: M WHC 12:53
PROVIDERS: ATTEND Surgery
DX: N64.89 Other specified disorders of breast (principal)

== ENCOUNTER → 2022-01-07 | Outpatient (CLI) | payer OTHER ==
[~2022-01-07] MED LIST changes: +**SFHN** LIDOCAINE 1% MDV 20ML VIAL ONE; +**SFHN** SODIUM BICARBONATE 8.4% 50MEQ 50ML VIAL ONE; +CLON0.3T PO; +CLONI1TA PO; +HYDR50TA70 PO
[2022-01-07 11:54] VITALS: BP 114/78
== END ==
LOC: M WHCPRO 10:39
PROVIDERS: ATTEND Surgery
DX: N60.32 Fibrosclerosis of left breast (principal); N63.21 Unspecified lump in the left breast, upper outer quadrant
CPT/HCPCS: 19083; 19084; 77065; G0279

== ENCOUNTER 2022-04-01 02:23 | Emergency (ER) | payer MEDICAID, SELFPAY ==
[~2022-04-01] VITALS: Ht 170.2 cm; Wt 68.1 kg
[~2022-04-01 02:23] MED LIST changes: -**SFHN** LIDOCAINE 1% MDV 20ML VIAL ONE; -**SFHN** SODIUM BICARBONATE 8.4% 50MEQ 50ML VIAL ONE
[2022-04-01] MEDS ORDERED: NS 1,000 ML IV ONE ×2 (02:40)
[2022-04-01 03:57] LABS: BASO # 0.1 10^3/uL (0.0-0.2); BASO % 0.7 % (0.0-1.0); EOS # 0.5 10^3/uL (0.0-0.5); EOS % 6.9 % (0.0-3.0); HEMATOCRIT 38.4 % (36.0-47.0); LYMPH # 2.1 10^3/uL (1.5-5.0); LYMPH % 27.8 % (24.0-44.0); MEAN CORPUSCULAR HGB CONC 33.9 g/dl (32.0-36.5); MEAN CORPUSCULAR VOLUME 91.4 fl (80.0-96.0); MONO # 0.5 10^3/uL (0.0-0.8); MONO % 6.6 % (2.0-8.0); NEUTROPHILS # 4.3 10^3/uL (1.5-8.5); NEUTROPHILS % 57.7 % (36.0-66.0); PLATELET COUNT, AUTOMATED 108 10^3/uL (150-450); WHITE BLOOD COUNT 7.4 10^3/uL (4.0-10.0)
[2022-04-01 04:39] LABS: BLOOD UREA NITROGEN 8 MG/DL (7-18); CALCIUM LEVEL 8.2 MG/DL (8.5-10.1); CARBON DIOXIDE LEVEL 20 MEQ/L (21-32); CHLORIDE LEVEL 104 MEQ/L (98-107); CK-MB VALUE MASS 4.9 NG/ML (<3.6); CREATININE FOR GFR 0.69 MG/DL (0.55-1.30); ETHYL ALCOHOL (ETHANOL) < 0.003 % (0.000-0.010); GLOMERULAR FILTRATION RATE > 60.0 (>60); GLUCOSE, FASTING 89 MG/DL (70-100); MAGNESIUM LEVEL 1.7 MG/DL (1.8-2.4); MB/CK RELATIVE INDEX 0.65 (< OR =4); POTASSIUM SERUM 2.9 MEQ/L (3.5-5.1); SODIUM LEVEL 137 MEQ/L (136-145)
[2022-04-01] MEDS ORDERED: MAGNESIUM OXIDE 400MG TAB (MAG-OX) PO ONE (04:50)
[2022-04-01] MEDS ORDERED: POTASSIUM CHLORIDE 10% LIQ 20 MEQ/15 ML UDC PO ONE (04:50)
[2022-04-01 10:36] LABS: AMPHETAMINES LEVEL URINE NEGATIVE (NEGATIVE); BARBITURATES URINE NEGATIVE (NEGATIVE); BENZODIAZEPINES URINE NEGATIVE (NEGATIVE); CANNABINOIDS URINE NEGATIVE (NEGATIVE); COCAINE METABOLITE URINE NEGATIVE (NEGATIVE); METHADONE URINE NEGATIVE (NEGATIVE); OPIATES URINE POSITIVE (NEGATIVE); PHENCYCLIDINE URINE NEGATIVE (NEGATIVE)
[2022-04-01 10:51] VITALS: BP 120/72
== END 2022-04-01 10:55 | disposition home or self-care (01) ==
LOC: EDBD 02:23 → M ED 02:23
DX: T40.601A Poisoning by unspecified narcotics, accidental (unintentional), initial encounter (principal); Z79.899 Other long term (current) drug therapy; Z88.8 Allergy status to other drugs, medicaments and biological substances; Z91.013 Allergy to seafood; Z91.030 Bee allergy status

== ENCOUNTER → 2023-04-14 | Outpatient (CLI) | payer MEDICAID ==
[~2023-04-14] MED LIST changes: +DIPH-435 PO; -DIPH25CA32 PO; +SENN-186 PO; -SENN-80 PO
== END ==
LOC: M OUTALCOH 09:52
PROVIDERS: ATTEND Psychiatry & Neurology Psychiatry
DX: F10.10 Alcohol abuse, uncomplicated (principal)

== ENCOUNTER 2023-04-20 10:03 | Outpatient (RCR) | payer MEDICAID | END 2023-04-23 | LOC: M OUTALCOH 10:03 | PROVIDERS: ATTEND Psychiatry & Neurology Psychiatry | DX: F11.20 Opioid dependence, uncomplicated (principal) ==

== ENCOUNTER 2023-05-06 16:40 | Emergency (ER) | payer MEDICAID, OTHER ==
[~2023-05-06] VITALS: Ht 139.7 cm; Wt 60.9 kg
[2023-05-06] MEDS ORDERED: CLONI1TA PO (16:56)
[2023-05-06] MEDS ORDERED: BUPR1FIL (16:56)
[2023-05-06] MEDS ORDERED: NITROFURANTOIN (MACROBID) 100 MG CAP PO ONE (20:30)
[2023-05-06] MEDS ORDERED: PHENAZOPYRIDINE 100 MG TAB PO ONE (20:30)
[2023-05-06 20:33] LABS: GC DNA AMPLIFICATION NEGATIVE (NEGATIVE)
[2023-05-06] MEDS ORDERED: PYRI1TAB5 PO (20:33)
[2023-05-06] MEDS ORDERED: MACR100C43 PO (20:33)
[2023-05-06 20:41] VITALS: BP 113/65; TEMP 98.2; O2SAT 100
== END 2023-05-06 20:43 | disposition home or self-care (01) ==
LOC: M ED 16:40
DX: N30.00 Acute cystitis without hematuria (principal); J45.909 Unspecified asthma, uncomplicated; F41.9 Anxiety disorder, unspecified; F32.A Depression, unspecified; F43.10 Post-traumatic stress disorder, unspecified; G47.00 Insomnia, unspecified; F90.9 Attention-deficit hyperactivity disorder, unspecified type; Z79.899 Other long term (current) drug therapy

== ENCOUNTER 2023-07-15 08:40 | Outpatient (RCR) | payer MEDICAID ==
[~2023-07-15 08:40] MED LIST changes: +BUPR1FIL; +MACR100C43 PO; +PYRI1TAB5 PO
== END 2023-07-23 ==
LOC: M OUTALCOH 08:40
PROVIDERS: ATTEND Psychiatry & Neurology Psychiatry
DX: F11.20 Opioid dependence, uncomplicated (principal)

== ENCOUNTER → 2023-09-02 | Outpatient (CLI) | payer OTHER | LOC: M WHC 11:17 | PROVIDERS: ATTEND Physician Assistant Medical | DX: N63.0 Unspecified lump in unspecified breast (principal) ==

== ENCOUNTER → 2025-05-31 | Outpatient (CLI) | payer OTHER ==
[~2025-05-31] MED LIST changes: +DIVA-41 PO; -DIVA500T94 PO; -IBUP-1022 PO; +IBUP600T42 PO
[2025-05-31 17:15] LABS: BASO # 0.1 10^3/uL (0.0-0.2); BASO % 1.3 % (0.0-1.0); EOS # 0.6 10^3/uL (0.0-0.5); EOS % 8.9 % (0.0-3.0); LYMPH # 3.4 10^3/uL (1.5-5.0); LYMPH % 49.9 % (24.0-44.0); MONO # 0.3 10^3/uL (0.0-0.8); MONO % 4.9 % (2.0-8.0); NEUTROPHILS # 2.3 10^3/uL (1.5-8.5); NEUTROPHILS % 34.9 % (36.0-66.0); PLATELET COUNT, AUTOMATED 273 10^3/uL (150-450)
[2025-05-31 17:42] LABS: ALT/SGPT 39 U/L (7.0-40); AST/SGOT 23 U/L (<34); CALCIUM LEVEL 9.0 MG/DL (8.5-10.1); CARBON DIOXIDE LEVEL 28 MMOL/L (20-31); CHLORIDE LEVEL 107 MMOL/L (98-107); CREATININE FOR GFR 0.55 MG/DL (0.55-1.30); GLOMERULAR FILTRATION RATE > 90.0 (>60); POTASSIUM SERUM 3.9 MMOL/L (3.5-5.1); SODIUM LEVEL 143 MMOL/L (136-145)
[2025-05-31 17:58] LABS: HCG, SERUM QUALITATIVE NEGATIVE (NEGATIVE)
[2025-05-31 18:11] LABS: HIV 1&2 SCREEN NEGATIVE (NEGATIVE)
== END ==
LOC: M LAB 16:04
PROVIDERS: ATTEND Emergency Medicine
DX: B18.2 Chronic viral hepatitis C (principal)